=== PATIENT | female | born 1940 | race Two or more races ===

== ENCOUNTER 2016-11-25 13:12 | Inpatient (IN) | payer BC, MEDICAID ==
[~2016-11-25] VITALS: Ht 152.4 cm; Wt 59.9 kg
[~2016-11-25 13:12] MED LIST: ASPI-605 PO; AZIT250T PO; GABA-534 PO; LOSA50TA21 PO; METO-304 PO; MONT10TA22 PO; RANI150C4 PO
[2016-11-25] MEDS ORDERED: ALBUTEROL FS 2.5 MG/3 ML VIAL.NEB ONE (13:46)
[2016-11-25] MEDS ORDERED: IPRATROPIUM NEB FS 0.5 MG/2.5 ML AMPUL.NEB ONE (13:46)
[2016-11-25] MEDS ORDERED: ALBUTEROL FS 2.5 MG/3 ML VIAL.NEB NEB ONE (14:00)
[2016-11-25] MEDS ORDERED: IPRATROPIUM NEB FS 0.5 MG/2.5 ML AMPUL.NEB NEB ONE (14:00)
[2016-11-25] MEDS ORDERED: HYDR25TA4 PO (14:04)
[2016-11-25] MEDS ORDERED: ALBU8.5H2 IH (14:04)
[2016-11-25] MEDS ORDERED: AMLO5TAB2 PO (14:04)
[2016-11-25] MEDS ORDERED: CYCL5TAB PO (14:04)
[2016-11-25] MEDS ORDERED: METO25TA6 PO (14:04)
[2016-11-25 14:06] LABS: BASOPHILS % (AUTO) 0.3 % (0.0-2.0); DIFF TOTAL % 100 %; EOSINOPHILS % (AUTO) 0.2 % (0.0-6.0); HEMATOCRIT 33 % (33-45); HEMOGLOBIN 10.8 g/dL (11.5-14.8); LYMPHOCYTES # (AUTO) 1.6 /CMM (0.8-4.8); LYMPHOCYTES % (AUTO) 14.5 % (20.0-44.0); MEAN CORPUSCULAR HEMOGLOBIN 25 PG (26.0-33.0); MEAN CORPUSCULAR HGB CONC 33 g/dl (31.0-36.0); MEAN CORPUSCULAR VOLUME 75 fL (82-100); MONOCYTES % (AUTO) 9.3 % (2.0-12.0); NEUTROPHILS # (AUTO) 8.4 /CMM (1.8-8.9); NEUTROPHILS % (AUTO) 75.7 % (43.0-81.0); PLATELET COUNT (AUTO) 333 /CMM (150-450); RED BLOOD CELL COUNT(AUTO) 4.43 MIL/uL (4.0-5.2); WHITE BLOOD COUNT (AUTO) 10.9 K/uL (4.3-11.0)
[2016-11-25 14:09] LABS: CALCIUM, SERUM 9.4 mg/dL (8.5-10.1); CREATININE 0.8 mg/dL (0.6-1.3); POTASSIUM 3.3 mmol/L (3.5-5.1)
[2016-11-25 14:49] LABS: LACTIC ACID 1.1 mmol/L (0.4-2.0)
[2016-11-25] MEDS ORDERED: IV SET PRIMARY 1 EA INFUS.SET MC ONE (14:57)
[2016-11-25] MEDS ORDERED: LEVOFLOXACIN 750 MG /D5W 150ML 150 ML IV ONE ×2 (14:57→15:00)
[2016-11-25] MEDS ORDERED: IV SET PRIMARY PUMP SET 1 EA INFUS.SET MC ONE (14:57)
[2016-11-25] MEDS ORDERED: IV NS 0.9% 500 ML IV ONE (14:57)
[2016-11-25] MEDS ORDERED: predniSONE 20 MG TABLET ONE (14:57)
[2016-11-25] MEDS ORDERED: MOME13HF IH (14:59)
[2016-11-25] MEDS ORDERED: predniSONE 20 MG TABLET PO ONE (15:00)
[2016-11-25] MEDS ORDERED: IV NS 0.9% 500 ML BAG IV ONE (15:00)
[2016-11-25 16:00] VITALS: BP 138/52
[2016-11-25 16:20] VITALS: BP 138/51
[2016-11-25] MEDS ORDERED: Z GUARD REMEDY 2 OZ OINT TP PRN (16:30)
[2016-11-25] MEDS ORDERED: ACETAMINOPHEN 325 MG TABLET PO PRN (16:30)
[2016-11-25] MEDS ORDERED: BENZONATATE 100 MG CAPSULE PO PRN (16:30)
[2016-11-25] MEDS ORDERED: HYDROCODONE/APAP 5/325MG 1 EACH TABLET PO PRN (16:30)
[2016-11-25] MEDS ORDERED: MAGNESIUM HYDROXIDE 30 ML UDC PO PRN (16:30)
[2016-11-25] MEDS ORDERED: MAG HYDROX/AL HYDROX/SIMETH 30 ML UDC PO PRN (16:30)
[2016-11-25] MEDS ORDERED: ONDANSETRON HCL/PF 4 MG/2 ML VIAL IVP PRN (16:30)
[2016-11-25] MEDS ORDERED: ZOLPIDEM TARTRATE 5 MG TABLET PO PRN (16:30)
[2016-11-25] MEDS: MONTELUKAST SODIUM (10MG) 10 MG TABLET PO SCH (17:18)
[2016-11-25] MEDS: GABAPENTIN 300 MG CAPSULE PO SCH (17:18)
[2016-11-25] MEDS: METOPROLOL TARTRATE 25 MG TABLET PO SCH (17:19)
[2016-11-25] MEDS: ENOXAPARIN SODIUM 40 MG/0.4 ML DISP.SYRIN SQ SCH (17:21)
[2016-11-25 20:00] VITALS: BP 111/61
[2016-11-25] MEDS: FLUTICASONE/SALMETEROL DISKUS IH SCH (21:00)
[2016-11-25 21:24] VITALS: BP 111/61
[2016-11-25] MEDS ORDERED: FLUTICASONE/SALMETEROL 1 DISK IH ONE (21:49)
[2016-11-25] MEDS ORDERED: POTASSIUM CHLORIDE 20 MEQ TAB.PRT.SR PO ONE ×2 (22:29→22:30)
[2016-11-25 23:58] VITALS: BP 119/64
[2016-11-26] VITALS (8 sets, daily range): BP systolic 113–137; BP diastolic 53–71
[2016-11-26] MEDS: PANTOPRAZOLE 40 MG TABLET.DR PO SCH (06:26)
[2016-11-26 06:50] LABS: BASOPHILS % (AUTO) 0.3 % (0.0-2.0); DIFF TOTAL % 100 %; HEMATOCRIT 32 % (33-45); HEMOGLOBIN 10.3 g/dL (11.5-14.8); LYMPHOCYTES # (AUTO) 1.2 /CMM (0.8-4.8); LYMPHOCYTES % (AUTO) 16.4 % (20.0-44.0); MEAN CORPUSCULAR HEMOGLOBIN 25 PG (26.0-33.0); MEAN CORPUSCULAR HGB CONC 32 g/dl (31.0-36.0); MEAN CORPUSCULAR VOLUME 76 fL (82-100); MONOCYTES # (AUTO) 0.6 /CMM (0.1-1.30); NEUTROPHILS # (AUTO) 5.6 /CMM (1.8-8.9); NEUTROPHILS % (AUTO) 75.3 % (43.0-81.0); PLATELET COUNT (AUTO) 322 /CMM (150-450); WHITE BLOOD COUNT (AUTO) 7.4 K/uL (4.3-11.0)
[2016-11-26 07:13] LABS: CALCIUM, SERUM 8.9 mg/dL (8.5-10.1); CREATININE 0.6 mg/dL (0.6-1.3); PHOSPHORUS 3.2 mg/dL (2.5-4.9); POTASSIUM 3.9 mmol/L (3.5-5.1)
[2016-11-26] MEDS ORDERED: LEVOFLOXACIN (500MG) 500 MG TABLET PO SCH (07:30)
[2016-11-26] MEDS: FLUTICASONE/SALMETEROL DISKUS IH SCH ×2 (08:45→21:29)
[2016-11-26] MEDS: predniSONE 20 MG TABLET PO SCH (08:46)
[2016-11-26] MEDS: CYCLOBENZAPRINE 10 MG TABLET PO SCH (08:46)
[2016-11-26] MEDS: GABAPENTIN 300 MG CAPSULE PO SCH ×2 (08:46→16:34)
[2016-11-26] MEDS: AMLODIPINE BESYLATE 5 MG TABLET PO SCH (09:00)
[2016-11-26] MEDS: METOPROLOL TARTRATE 25 MG TABLET PO SCH ×2 (09:00→16:36)
[2016-11-26] MEDS: LOSARTAN POTASSIUM 50 MG TABLET PO SCH (09:00)
[2016-11-26] MEDS: HYDROCHLOROTHIAZIDE 25 MG TABLET PO SCH (09:00)
[2016-11-26] MEDS: GUAIFENESIN/D-METHORPHAN HB 5 ML UDC PO PRN ×2 (11:51→16:38)
[2016-11-26] MEDS ORDERED: LEVOFLOXACIN (250MG) 250 MG TABLET PO SCH (15:00)
[2016-11-26] MEDS: MONTELUKAST SODIUM (10MG) 10 MG TABLET PO SCH (16:35)
[2016-11-26] MEDS: ENOXAPARIN SODIUM 40 MG/0.4 ML DISP.SYRIN SQ SCH (21:31)
[2016-11-27 07:11] LABS: BASOPHILS % (AUTO) 0.1 % (0.0-2.0); DIFF TOTAL % 100 %; HEMATOCRIT 32 % (33-45); HEMOGLOBIN 10.4 g/dL (11.5-14.8); LYMPHOCYTES # (AUTO) 1.7 /CMM (0.8-4.8); LYMPHOCYTES % (AUTO) 18.2 % (20.0-44.0); MEAN CORPUSCULAR HEMOGLOBIN 25 PG (26.0-33.0); MEAN CORPUSCULAR HGB CONC 33 g/dl (31.0-36.0); MEAN CORPUSCULAR VOLUME 76 fL (82-100); MONOCYTES # (AUTO) 0.9 /CMM (0.1-1.30); MONOCYTES % (AUTO) 9.6 % (2.0-12.0); NEUTROPHILS # (AUTO) 6.6 /CMM (1.8-8.9); NEUTROPHILS % (AUTO) 72.1 % (43.0-81.0); PLATELET COUNT (AUTO) 330 /CMM (150-450); RED BLOOD CELL COUNT(AUTO) 4.22 MIL/uL (4.0-5.2); WHITE BLOOD COUNT (AUTO) 9.1 K/uL (4.3-11.0)
[2016-11-27 07:19] LABS: CALCIUM, SERUM 9.2 mg/dL (8.5-10.1); CREATININE 0.7 mg/dL (0.6-1.3); PHOSPHORUS 3.3 mg/dL (2.5-4.9); POTASSIUM 3.9 mmol/L (3.5-5.1)
[2016-11-27 08:00] VITALS: BP 127/66
[2016-11-27] MEDS: FLUTICASONE/SALMETEROL DISKUS IH SCH (08:49)
[2016-11-27] MEDS: GABAPENTIN 300 MG CAPSULE PO SCH (08:50)
[2016-11-27] MEDS: HYDROCHLOROTHIAZIDE 25 MG TABLET PO SCH (08:50)
[2016-11-27] MEDS: AMLODIPINE BESYLATE 5 MG TABLET PO SCH (08:50)
[2016-11-27] MEDS: LOSARTAN POTASSIUM 50 MG TABLET PO SCH (08:50)
[2016-11-27] MEDS: PANTOPRAZOLE 40 MG TABLET.DR PO SCH (08:50)
[2016-11-27 08:51] VITALS: BP 127/66
[2016-11-27] MEDS: METOPROLOL TARTRATE 25 MG TABLET PO SCH (08:51)
[2016-11-27] MEDS: CYCLOBENZAPRINE 10 MG TABLET PO SCH (08:51)
[2016-11-27] MEDS: predniSONE 20 MG TABLET PO SCH (08:52)
[2016-11-27] MEDS ORDERED: LEVO250T11 PO (09:38)
== END 2016-11-27 13:00 | disposition home or self-care (01) | DRG 139 ==
LOC: ER 13:14 → TELE 16:08 → MED 11-26 11:52
PROVIDERS: ADMIT Internal Medicine; ATTEND Internal Medicine
DX: J15.9 Unspecified bacterial pneumonia (principal); J96.01 Acute respiratory failure with hypoxia; I25.10 Atherosclerotic heart disease of native coronary artery without angina pectoris; Z98.61 Coronary angioplasty status; J40 Bronchitis, not specified as acute or chronic; J45.20 Mild intermittent asthma, uncomplicated; K21.9 Gastro-esophageal reflux disease without esophagitis; I10 Essential (primary) hypertension; E78.5 Hyperlipidemia, unspecified; E87.6 Hypokalemia; I70.0 Atherosclerosis of aorta; J84.112 Idiopathic pulmonary fibrosis
CPT/HCPCS: 36415; 71010-TC; 72170-TC; 80048-TC; 83605-TC; 83735-TC; 84100-TC; 85025-TC; 87040-TC; 87081-TC; 97001-TC; 97116-TC; 97530-TC; A4606; J1650; J1956; J7040; Z7610

== ENCOUNTER 2017-04-08 23:26 | Emergency (ER) | payer MEDICAID ==
[~2017-04-08] VITALS: Ht 162.6 cm; Wt 59.0 kg
[~2017-04-08 23:26] MED LIST changes: +AMLO5TAB2 PO; -ASPI-605 PO; -AZIT250T PO; +CYCL5TAB PO; +HYDR25TA4 PO; +LEVO250T2 PO; -METO-304 PO; +METO25TA6 PO; +MOME13HF IH; -RANI150C4 PO
--- NOTE | 2017-04-08 23:45 | NUR ---
PT PRESENTED TO THE ER WITH A C/O ABD PAIN THAT RADIATES TO THE BACK. PT HAS RHONCHI NOTED BILATERALLY AND IS ALSO C/O A COUGH X 3 DAYS. PT IS NEW ZEALANDER SPEAKING ONLY. FAMILY IS AT THE BEDSIDE AND TRASLATING FOR THE PT.
[2017-04-09] MEDS ORDERED: ALBUTEROL FS 2.5 MG/3 ML VIAL.NEB ONE (00:08)
--- NOTE | 2017-04-09 00:23 | NUR ---
PT AMBULATED TO THE BATHROOM WITH A STEADY GAIT. URINE SAMPLE OBTAINED AND SENT TO LAB.
[2017-04-09] MEDS ORDERED: MORPHINE SULFATE INJ 4 MG/ML DISP.SYRIN ONE (00:24)
[2017-04-09] MEDS ORDERED: ONDANSETRON HCL/PF 4 MG/2 ML VIAL ONE (00:24)
[2017-04-09] MEDS ORDERED: MORPHINE SULFATE INJ 2 MG/ML DISP.SYRIN ONE (00:24)
[2017-04-09 00:29] LABS: BASOPHILS % (AUTO) 0.3 % (0.0-2.0); EOSINOPHILS % (AUTO) 0.2 % (0.0-6.0); HEMATOCRIT 34 % (33-45); LYMPHOCYTES # (AUTO) 1.4 /CMM (0.8-4.8); LYMPHOCYTES % (AUTO) 12.3 % (20.0-44.0); MEAN CORPUSCULAR HEMOGLOBIN 25 PG (26.0-33.0); MEAN CORPUSCULAR HGB CONC 33 g/dl (31.0-36.0); MEAN CORPUSCULAR VOLUME 77 fL (82-100); MONOCYTES # (AUTO) 0.9 /CMM (0.1-1.30); MONOCYTES % (AUTO) 8.1 % (2.0-12.0); NEUTROPHILS # (AUTO) 8.9 /CMM (1.8-8.9); NEUTROPHILS % (AUTO) 79.1 % (43.0-81.0); PLATELET COUNT (AUTO) 384 /CMM (150-450); RDW COEFFICIENT OF VARIATION 16.6 (11.5-15.0); RED BLOOD CELL COUNT(AUTO) 4.37 MIL/uL (4.0-5.2); WHITE BLOOD COUNT (AUTO) 11.2 K/uL (4.3-11.0)
[2017-04-09] MEDS ORDERED: ALBUTEROL FS 2.5 MG/3 ML VIAL.NEB NEB ONE (00:30)
[2017-04-09] MEDS ORDERED: ONDANSETRON HCL/PF 4 MG/2 ML VIAL IVP ONE (00:30)
[2017-04-09] MEDS ORDERED: MORPHINE SULFATE INJ 2 MG/ML DISP.SYRIN IV ONE (00:30)
[2017-04-09 00:34] LABS: APPEARANCE,URINE CLEAR (CLEAR); BILIRUBIN,URINE NEGATIVE (NEGATIVE); BLOOD, URINE 1+ Ery/uL (NEGATIVE); COLOR,URINE YELLOW (YELLOW); KETONES,URINE NEGATIVE (NEGATIVE); LEUKOCYTE ESTERASE ,URINE TRACE (NEGATIVE); NITRITE, URINE NEGATIVE (NEGATIVE); PH,URINE 6.5 (5.0-8.0); PROTEIN,URINE NEGATIVE (NEGATIVE); UGLUCOSE NEGATIVE (NEGATIVE); UROBILINOGEN,URINE 0.2 EU/dL (0.2)
[2017-04-09 00:41] LABS: CALCIUM, SERUM 9.1 mg/dL (8.5-10.1); CREATININE 0.8 mg/dL (0.6-1.3); POTASSIUM 3.5 mmol/L (3.5-5.1)
[2017-04-09 00:44] LABS: ADD URINE CULTURE NO; BACTERIA,URINE Rare /HPF (None Seen); SQUAMOUS EPITHELIAL CELL,UR Few /HPF (None Seen); WBC,URINE 0-2 /HPF (0-3)
[2017-04-09 00:49] LABS: INR 0.96 (0.87-1.13); PROTHROMBIN TIME 10.2 SECS (9.5-12.7)
[2017-04-09 00:54] LABS: ALBUMIN 3.3 g/dL (3.4-5.0); BILIRUBIN,DIRECT 0.1 mg/dL (0.0-0.2); BILIRUBIN,TOTAL 0.2 mg/dL (0.2-1.0); TOTAL PROTEIN, SERUM 8.5 g/dL (6.4-8.2)
--- NOTE | 2017-04-09 01:15 | NUR ---
PT APPEARS TO BE RESTING COMFORTABLY WITH NO S/S OF PAIN OR DISTRESS.
--- NOTE | 2017-04-09 02:35 | NUR ---
PO CHALLENGE DONE. PT TOLERATED PO WELL.
[2017-04-09 02:51] VITALS: BP 134/82
--- NOTE | 2017-04-09 02:53 | NUR ---
IV removed. Catheter intact and site benign. Pressure and 4x4 applied to site. No bleeding noted.
== END 2017-04-09 03:03 | disposition home or self-care (01) ==
LOC: ER 23:32
DX: N83.201 Unspecified ovarian cyst, right side (principal); J84.9 Interstitial pulmonary disease, unspecified; I10 Essential (primary) hypertension; J45.909 Unspecified asthma, uncomplicated
CPT/HCPCS: 36415; 71010; 74176; 80048; 80076; 81001; 83690; 83880; 85025; 85730; 94640; 96374; 96375; 99285; A4606; J2270 ×2; J2405; Z7610; 81000-TC

== ENCOUNTER 2017-05-30 22:57 | Inpatient (IN) | payer MEDICAID ==
[~2017-05-30] VITALS: Ht 144.8 cm; Wt 62.8 kg
[2017-05-30] MEDS ORDERED: ONDANSETRON HCL/PF 4 MG/2 ML VIAL ONE (23:09)
[2017-05-30] MEDS ORDERED: IV SET PRIMARY 1 EA INFUS.SET MC ONE (23:09)
[2017-05-30] MEDS ORDERED: IV NS 0.9% 1,000 ML ONE (23:09)
--- NOTE | 2017-05-30 23:10 | NUR ---
77 YO FEMALE BB FAMILY. PT IS ALERT X 3, C/O OF FEELING WEAK AND DIZZY. PT AMBULATED TO ER BED, SKIN WARM AND DRY, RR EVEN AND UNLABORED. PT GOWNED, PLACED ON HAND TRIMMER. AWAITING ORDERS FROM PROVIDER, WILL CONTINUE TO LAKHWINDER
--- NOTE | 2017-05-30 23:22 | NUR ---
18G RIGHT AC IV STARTED, BLOOD SAMPLE OBTAINED AND SENT TO LAB
--- NOTE | 2017-05-30 23:26 | NUR ---
PT TRANSPORTED TO CT VIA GURNEY BY RADIOLOGY TEAM
[2017-05-30 23:28] LABS: BASOPHILS % (AUTO) 0.5 % (0.0-2.0); EOSINOPHILS # (AUTO) 0.3 /CMM (0.0-0.7); EOSINOPHILS % (AUTO) 4.2 % (0.0-6.0); HEMATOCRIT 34 % (33-45); LYMPHOCYTES # (AUTO) 2.3 /CMM (0.8-4.8); LYMPHOCYTES % (AUTO) 28.6 % (20.0-44.0); MEAN CORPUSCULAR HEMOGLOBIN 25 PG (26.0-33.0); MEAN CORPUSCULAR HGB CONC 32 g/dl (31.0-36.0); MEAN CORPUSCULAR VOLUME 79 fL (82-100); MONOCYTES # (AUTO) 0.8 /CMM (0.1-1.30); MONOCYTES % (AUTO) 9.7 % (2.0-12.0); NEUTROPHILS # (AUTO) 4.6 /CMM (1.8-8.9); PLATELET COUNT (AUTO) 305 /CMM (150-450); RDW COEFFICIENT OF VARIATION 18.1 (11.5-15.0); RED BLOOD CELL COUNT(AUTO) 4.38 MIL/uL (4.0-5.2); WHITE BLOOD COUNT (AUTO) 8.1 K/uL (4.3-11.0)
[2017-05-30] MEDS ORDERED: ONDANSETRON HCL/PF 4 MG/2 ML VIAL IVP ONE (23:30)
[2017-05-30] MEDS ORDERED: IV NS 0.9% 1,000 ML BAG IV ONE (23:30)
[2017-05-30 23:39] LABS: CALCIUM, SERUM 9.3 mg/dL (8.5-10.1); CARBON DIOXIDE 35 mmol/L (21-32); CHLORIDE 100 mmol/L (98-107); CREATININE 0.7 mg/dL (0.6-1.3); GLUCOSE 112 mg/dL (74-106); POTASSIUM 4.5 mmol/L (3.5-5.1); SODIUM SERUM 139 mmol/L (136-145); UREA NITROGEN, BLOOD 11 mg/dL (7-18)
[2017-05-30 23:42] LABS: INR 0.92 (0.87-1.13); PROTHROMBIN TIME 9.8 SECS (9.5-12.7)
[2017-05-30 23:45] LABS: ALANINE AMINOTRANSFERASE 19 U/L (12-78); ALBUMIN 3.3 g/dL (3.4-5.0); ALKALINE PHOSPHATASE 95 U/L (46-116); ASPARTATE AMINOTRANSFERASE 15 U/L (15-37); BILIRUBIN,TOTAL 0.2 mg/dL (0.2-1.0); TOTAL PROTEIN, SERUM 7.7 g/dL (6.4-8.2)
[2017-05-30 23:46] LABS: TROPONIN I < 0.017 ng/mL (0.00-0.056)
--- NOTE | 2017-05-31 00:53 | NUR ---
report given to rn for hussein
--- NOTE | 2017-05-31 01:10 | NUR ---
TELE/RN NOTES RECEIVED PT. FROM ER [facility]IA [facility]. PT. IS AWAKE, ALERT AND ORIENTED X3. BREATHING EVEN AND UNLABORED ON ROOM AIR. NO SOB, RESPIRATORY DISTRESS OR COMPLAINTS OF PAIN NOTED AT THIS TIME. PT. DENIES ANY NUMBNESS OR HEADACHE. ORIENTED PT. TO ROOM. NEURO CHECK PERFORMED NO ABNORMALITIES NOTED. PLACED EXTERNAL INVESTIGATION DIVISION LIEUTENANT ON PT. CURRENT RHYTHM = SINUS RHYTHM HR 83. PT. WITH RIGHT AC 18 GAUGE PERIPHERAL IV PRESENT, PATENT AND INTACT ADMINISTERING TO PT. NS FROM ER. PT. FAMILY AT BEDSIDE. BED IN LOWEST POSITION, CALL LIGHT WITHIN REACH, SIDE RAILS UP X2, BED ALARM ON. EDUCATED PT. ON CALLING FOR ASSISTANCE BEFORE AMBULATING. PT. VERBALIZED UNDERSTANDING. WILL CONTINUE TO MONITOR.
[2017-05-31 01:14] LABS: APPEARANCE,URINE SL CLOUDY (CLEAR); BILIRUBIN,URINE NEGATIVE (NEGATIVE); BLOOD, URINE TRACE-INTA Ery/uL (NEGATIVE); KETONES,URINE NEGATIVE (NEGATIVE); LEUKOCYTE ESTERASE ,URINE 1+ (NEGATIVE); NITRITE, URINE NEGATIVE (NEGATIVE); PH,URINE 6.5 (5.0-8.0); PROTEIN,URINE NEGATIVE (NEGATIVE); UGLUCOSE NEGATIVE (NEGATIVE); UROBILINOGEN,URINE 0.2 EU/dL (0.2)
[2017-05-31 01:16] LABS: COLOR,URINE Light yellow (YELLOW)
[2017-05-31 01:19] LABS: BACTERIA,URINE None seen /HPF (None Seen); RBC,URINE 0-2 /HPF (0-2); SQUAMOUS EPITHELIAL CELL,UR Rare /HPF (None Seen)
[2017-05-31 01:34] LABS: THYROID STIMULATING HORMONE 5.327 uIU/mL (0.358-3.74)
[2017-05-31] MEDS ORDERED: GABA-534 PO (01:38)
[2017-05-31] MEDS ORDERED: RANI150T8 PO (01:38)
[2017-05-31] MEDS ORDERED: ENOXAPARIN SODIUM 30 MG/0.3 ML DISP.SYRIN ONE (02:01)
[2017-05-31] MEDS: ENOXAPARIN SODIUM 30 MG/0.3 ML DISP.SYRIN SQ SCH (02:58)
[2017-05-31 04:00] VITALS: BP_SYST 119; BP_SYST 136; BP_DIAS 61; BP_DIAS 79
--- NOTE | 2017-05-31 05:05 | NUR ---
TELE/RN NOTES CLARIFIED WITH JENNIFER HURTADO PT. HAS ACCUCHECKS ORDERED Q6H AND ACCUCHECKS ACHS. PER JENNIFER HURTADO D/C Q6HR ACCUCHECKS BECAUSE PT. IS EATING. WILL CARRY OUT ORDER. WILL CONTINUE TO MONITOR.
[2017-05-31] MEDS ORDERED: BLOOD SUGAR DIAGNOSTIC 1 EACH STRIP IN SCH (06:00)
[2017-05-31] MEDS: BLOOD SUGAR DIAGNOSTIC 1 EACH STRIP IN SCH ×4 (06:33→21:12)
--- NOTE | 2017-05-31 06:45 | NUR ---
TELE/RN NOTES PT. LYING IN BED RESTING. PT. IS EASILY AROUSABLE TO NAME. BREATHING EVEN AND UNLABORED ON ROOM AIR. NO SOB, RESPIRATORY DISTRESS OR COMPLAINTS OF PAIN NOTED AT THIS TIME. PT. DENIES ANY NUMBNESS OR HEADACHE. ORIENTED PT. TO ROOM. FREQUENT NEURO CHECKS PERFORMED WITH NO ABNORMALITIES NOTED. EXTERNAL ENVELOPE FOLDING MACHINE OPERATOR PRESENT AND INTACT CURRENT RHYTHM = SINUS RHYTHM HR 78. PT. WITH RIGHT AC 18 GAUGE IV SALINE LOCK, PRESENT, PATENT AND INTACT. ALL PT. NEEDS MET. BED IN LOWEST POSITION, CALL LIGHT WITHIN REACH, SIDE RAILS UP X2, BED ALARM ON. WILL ENDORSE TO DAYSHIFT NURSE FOR CONTINUITY OF CARE.
[2017-05-31 06:48] VITALS: BP 114/60
--- NOTE | 2017-05-31 07:45 | NUR ---
FRUIT DRYER OPENING NOTE PATIENT IS ALERT AND ORIENTED x4. NO PAIN AT THIS TIME. NO SOB OR DISTRESS NOTED. CALL LIGHT WITHIN REACH. SAFETY MEASURES IMPLEMENTED. ABLE TO COMMUNICATE NEEDS. IV INTACT AND PATENT NO REDNESS OR SWELLING NOTED. GERMAN SPEAKING, HARD OF HEARING ON RIGHT EAR. AWAITING CONSULTS THIS MORNING. WILL CONTINUE TO MONITOR
[2017-05-31 08:00] VITALS: BP 114/60
[2017-05-31] MEDS ORDERED: PANTOPRAZOLE 40 MG VIAL IV SCH (09:00)
[2017-05-31] MEDS: ASPIRIN 325 MG TABLET PO SCH (09:11)
[2017-05-31] MEDS: PANTOPRAZOLE 40 MG TABLET.DR PO SCH (09:21)
[2017-05-31 12:00] VITALS: BP 129/48
[2017-05-31 16:00] VITALS: BP 148/62
[2017-05-31] MEDS: GABAPENTIN 300 MG CAPSULE PO SCH (16:52)
[2017-05-31] MEDS: METOPROLOL TARTRATE 25 MG TABLET PO SCH (16:53)
[2017-05-31] MEDS ORDERED: FLUTICASONE/SALMETEROL DISKUS IH SCH (17:00)
[2017-05-31] MEDS: MONTELUKAST SODIUM (10MG) 10 MG TABLET PO SCH (17:01)
--- NOTE | 2017-05-31 18:13 | NUR ---
LIVESTOCK NUTRITIONIST CLOSING NOTE PATIENT IS ALERT AND ORIENTED x4. NO PAIN AT THIS TIME. NO SOB OR DISTRESS NOTED. CALL LIGHT WITHIN REACH AT ALL TIMES. SAFETY MEASURES IMPLEMENTED. ABLE TO COMMUNICATE NEEDS. IV INTACT AND PATENT NO REDNESS OR SWELLING NOTED. ALL DUE MEDICATIONS GIVEN ORDERED. MED RECON DONE. MRI BRAIN WITHOUT CONTRAST DONE. WILL ENDORSE TO DATA PROCESSING CONSULTANT NURSE.
[2017-05-31] MEDS ORDERED: ALBUTEROL FS 2.5 MG/3 ML VIAL.NEB NEB PRN (19:30)
--- NOTE | 2017-05-31 19:45 | NUR ---
BOLT LABELER OPENING NOTES PT IS IN BED SLEEPING, EASILY AROUSED. NO SIGNS OF SOB OR DISTRESS. SR 69 ON TELE MONITOR. IV IS PATENT AND INTACT. PT IS ABLE TO COMMUNICATE NEEDS, GEORGIAN SPEAKING. DENIES PAIN. BED IS IN LOW AND LOCKED POSITION, CALL LIGHT IS WITHIN REACH. WILL CONTINUE TO MONITOR PT
[2017-05-31 20:00] VITALS: BP 143/56
[2017-05-31] MEDS ORDERED: ATORVASTATIN 10 MG TABLET PO SCH (22:00)
[2017-06-01] VITALS: BP 140/64
[2017-06-01] MEDS: ENOXAPARIN SODIUM 30 MG/0.3 ML DISP.SYRIN SQ SCH (00:30)
[2017-06-01] MEDS: BLOOD SUGAR DIAGNOSTIC 1 EACH STRIP IN SCH (06:30)
--- NOTE | 2017-06-01 06:50 | NUR ---
COMBINING MACHINE OPERATOR CLOSING NOTES PT IS IN BED SLEEPING, BREATHING IS EVEN AND UNLABORED. NO SIGNS OF DISTRESS OR SOB. ALL DUE MEDS WERE GIVEN ORDERED. IV ACCESS IS PATENT AND INTACT. AWAITING CONSULTS. WILL ENDORSE TO DAY SHIFT
[2017-06-01 07:02] LABS: BASOPHILS % (AUTO) 0.4 % (0.0-2.0); EOSINOPHILS # (AUTO) 0.2 /CMM (0.0-0.7); HEMATOCRIT 34 % (33-45); LYMPHOCYTES # (AUTO) 1.7 /CMM (0.8-4.8); MEAN CORPUSCULAR HEMOGLOBIN 26 PG (26.0-33.0); MEAN CORPUSCULAR HGB CONC 33 g/dl (31.0-36.0); MEAN CORPUSCULAR VOLUME 79 fL (82-100); MONOCYTES # (AUTO) 0.7 /CMM (0.1-1.30); MONOCYTES % (AUTO) 8.6 % (2.0-12.0); NEUTROPHILS # (AUTO) 5.2 /CMM (1.8-8.9); PLATELET COUNT (AUTO) 237 /CMM (150-450); RDW COEFFICIENT OF VARIATION 17.8 (11.5-15.0); RED BLOOD CELL COUNT(AUTO) 4.29 MIL/uL (4.0-5.2); WHITE BLOOD COUNT (AUTO) 7.9 K/uL (4.3-11.0)
[2017-06-01 07:23] VITALS: BP 127/63
[2017-06-01 07:34] LABS: CALCIUM, SERUM 8.7 mg/dL (8.5-10.1); CARBON DIOXIDE 30 mmol/L (21-32); CHLORIDE 102 mmol/L (98-107); CREATININE 0.7 mg/dL (0.6-1.3); GLUCOSE 93 mg/dL (74-106); POTASSIUM 3.7 mmol/L (3.5-5.1); SODIUM SERUM 139 mmol/L (136-145); UREA NITROGEN, BLOOD 13 mg/dL (7-18)
[2017-06-01 08:00] VITALS: BP 137/61
--- NOTE | 2017-06-01 08:00 | NUR ---
TELE/RN AM SHIFT INITIAL NOTES RECEIVED PT AWAKE SITTING IN BED, NO ACUTE CHANGE OF CONDITION NOTED. NO DEFICITS OR S/S OF STROKE NOTED. PT A/O X 4, FRENCH SPEAKING, DENIES ANY SYMPTOMS. ON ROOM AIR SATURATING @ 96%, LUNG SOUNDS CLEAR. ON TELE WITH SINUS RHYTHM, HR 88. IV SITE FLUSHED, PATENT WITH NO S/S OF INFECTION, SL. PT IS COMFORTABLE, SCHEDULED AM MEDS TO BE GIVEN. CL WITHIN REACHED AND SAFETY MAINTAINED. ON GOING MONITORING.
[2017-06-01] MEDS: GABAPENTIN 300 MG CAPSULE PO SCH ×2 (08:50→17:05)
[2017-06-01] MEDS: PANTOPRAZOLE 40 MG TABLET.DR PO SCH (08:50)
[2017-06-01] MEDS: METOPROLOL TARTRATE 25 MG TABLET PO SCH ×2 (08:51→17:06)
[2017-06-01] MEDS: ASPIRIN 325 MG TABLET PO SCH (08:51)
[2017-06-01] MEDS ORDERED: AMLODIPINE BESYLATE 5 MG TABLET PO SCH (09:00)
[2017-06-01] MEDS ORDERED: LOSARTAN POTASSIUM 50 MG TABLET PO SCH (09:00)
[2017-06-01] MEDS ORDERED: FLUTICASONE/VILANTEROL 1 EACH BLST.W.DEV IH SCH (09:00)
--- NOTE | 2017-06-01 09:00 | NUR ---
TELE/RN ROUNDS - DR. GRIGGS PT SEEN & EXAMINED BY DR. GRIGGS. NO NEW ORDERS RECEIVED AT THIS TIME. INFORMED ME THAT PT WILL HAVE A EEG PROCEDURE AND WILL BE SEEN BY DR. ORTIZ TODAY, NOTED. MONITORING CONTINUED.
--- NOTE | 2017-06-01 10:49 | NUR ---
TELE/RN ROUNDS - DR. ORTIZ UPDATED PT'S CONDITION. PT SEEN & EXAMINED BY DR. ORTIZ. NO NEW ORDERS RECEIVED AT THIS TIME. AWAITING FOR EEG PROCEDURE. MONITORING CONTINUED.
[2017-06-01 16:00] VITALS: BP 145/66
--- NOTE | 2017-06-01 17:00 | NUR ---
MS/RN AFTERNOON ROUNDS NO CHANGE OF CONDITION. PT WITH ON GOING EEG PROCEDURE. MONITORING.
[2017-06-01 17:06] VITALS: BP 145/66
[2017-06-01] MEDS: MONTELUKAST SODIUM (10MG) 10 MG TABLET PO SCH (17:06)
--- NOTE | 2017-06-01 18:00 | NUR ---
MS/DENTAL CERAMIST HELPER - HOME EEG TEST RESULT NORMAL. DRs. GRIGGS AND ANGEL AWARE. DISCHARGE INSTRUCTIONS GIVEN TO PT AND PT'S DAUGHTER, VERBALIZED UNDERSTANDING. DISCHARGE DOCUMENTS GIVEN. PERSONAL BELONGINGS RETURNED TO PT, INVENTORY LOG SIGNED OFF. IV SITE REMOVED, PRESSURE DRESSING APPLIED, NO S/S OF INFECTION. ID BAND REMOVED. PT LEFT MS UNIT IN STABLE CONDITION VIA WHEELCHAIR ACCOMPANIED BY KAITLYN HEWITT AND PT'S DAUGHTER TO AN AWAITING PRIVATE CAR.
[2017-06-01] MEDS ORDERED: ENOXAPARIN SODIUM 30 MG/0.3 ML DISP.SYRIN SQ SCH (21:00)
== END 2017-06-01 18:00 | disposition home or self-care (01) | DRG 48 ==
LOC: ER 22:58 → TELE 05-31 00:41 → MED 05-31 09:49 → TELE 05-31 09:49 → MED 06-01 11:00
PROVIDERS: ADMIT Nurse Practitioner Acute Care
DX: G90.8 Other disorders of autonomic nervous system (principal); E53.8 Deficiency of other specified B group vitamins; I10 Essential (primary) hypertension; E78.5 Hyperlipidemia, unspecified; I25.10 Atherosclerotic heart disease of native coronary artery without angina pectoris; K21.9 Gastro-esophageal reflux disease without esophagitis; J45.909 Unspecified asthma, uncomplicated; E78.00 Pure hypercholesterolemia, unspecified; Z87.01 Personal history of pneumonia (recurrent); Z79.899 Other long term (current) drug therapy; Z98.890 Other specified postprocedural states
CPT/HCPCS: 36415; 70450-TC; 70553-TC; 71010-TC; 80048-TC; 80061-TC; 80076-TC; 80305; 81000-TC; 82962-TC; 83880; 84443-TC; 84484-TC; 85025-TC; 85652-TC; 85730-TC; 87081-TC; 87086-TC; 92521; 93307-TC; 93880-TC; 95819-TC; 97001-TC; A4606; J1650; J2405; J7030; Z7610

== ENCOUNTER 2017-10-29 16:53 | Emergency (ER) | payer MEDICAID ==
[~2017-10-29] VITALS: Ht 162.6 cm; Wt 64.9 kg
[~2017-10-29 16:53] MED LIST changes: -LEVO250T2 PO; +RANI150T8 PO
[2017-10-29 17:05] VITALS: BP 140/79
== END 2017-10-29 18:40 | disposition home or self-care (01) ==
LOC: ER 16:59
DX: S61.212A Laceration without foreign body of right middle finger without damage to nail, initial encounter (principal); S61.214A Laceration without foreign body of right ring finger without damage to nail, initial encounter; I10 Essential (primary) hypertension; J45.909 Unspecified asthma, uncomplicated; E78.00 Pure hypercholesterolemia, unspecified; W31.89XA Contact with other specified machinery, initial encounter; Y93.89 Activity, other specified; Y92.89 Other specified places as the place of occurrence of the external cause; Y99.8 Other external cause status
CPT/HCPCS: 73130; 99284; A4606; Z7610

== ENCOUNTER 2019-11-30 19:12 | Emergency (ER) | payer MEDICAID ==
[~2019-11-30] VITALS: Ht 152.4 cm; Wt 68.0 kg
[~2019-11-30 19:12] MED LIST changes: -AMLO5TAB2 PO; +AMLO5TAB9 PO; -LOSA50TA21 PO; +LOSA50TA39 PO
--- NOTE | 2019-11-30 19:40 | NUR ---
BIBFAMILY FROM HOME TO ER BED 1. AAOX4. BREATHING EVEN AND UNLABORED. AMBULATORY CAME IN FOR FLU LIKE SYMPTOM X 2 DAYS. PRODUCTIVE COUGH, FEVER, H/A, BODY ACHE. PT REPORT CHEST AND ABD PAIN WHEN HE IS COUGHING. MD AT BEDSIDE FOR EVAL.
[2019-11-30] MEDS ORDERED: ALBUTEROL FS 2.5 MG/3 ML VIAL.NEB ONE (20:58)
[2019-11-30] MEDS ORDERED: ALBUTEROL FS 2.5 MG/3 ML VIAL.NEB NEB ONE (21:00)
[2019-11-30] MEDS ORDERED: IPRATROPIUM NEB FS 0.5 MG/2.5 ML AMPUL.NEB NEB ONE (21:00)
[2019-11-30 21:05] LABS: BASOPHILS # (AUTO) 0.1 /CMM (0.0-0.2); BASOPHILS % (AUTO) 0.5 % (0.0-2.0); EOSINOPHILS % (AUTO) 0.2 % (0.0-6.0); HEMATOCRIT 34 % (33-45); HEMOGLOBIN 11.1 g/dL (11.5-14.8); LYMPHOCYTES # (AUTO) 0.7 /CMM (0.8-4.8); LYMPHOCYTES % (AUTO) 6.2 % (20.0-44.0); MEAN CORPUSCULAR HGB CONC 33 g/dl (31.0-36.0); MEAN CORPUSCULAR VOLUME 82 fL (82-100); MONOCYTES # (AUTO) 0.8 /CMM (0.1-1.30); MONOCYTES % (AUTO) 7.2 % (2.0-12.0); NEUTROPHILS # (AUTO) 9.1 /CMM (1.8-8.9); NEUTROPHILS % (AUTO) 85.9 % (43.0-81.0); PLATELET COUNT (AUTO) 200 /CMM (150-450); RED BLOOD CELL COUNT(AUTO) 4.14 MIL/uL (4.0-5.2); WHITE BLOOD COUNT (AUTO) 10.6 K/uL (4.3-11.0)
[2019-11-30 21:10] LABS: CALCIUM, SERUM 8.8 mg/dL (8.5-10.1); CREATININE 1.3 mg/dL (0.6-1.3); POTASSIUM 3.4 mmol/L (3.5-5.1)
[2019-11-30] MEDS ORDERED: POTASSIUM CHLORIDE 20 MEQ TAB.PRT.SR PO ONE ×2 (22:00→22:24)
[2019-11-30 22:23] LABS: APPEARANCE,URINE Clear (CLEAR); BILIRUBIN,URINE Negative (NEGATIVE); BLOOD, URINE Large Ery/uL (NEGATIVE); COLOR,URINE Orange (YELLOW); KETONES,URINE Trace (NEGATIVE); LEUKOCYTE ESTERASE ,URINE Small (NEGATIVE); NITRITE, URINE Negative (NEGATIVE); PROTEIN,URINE 100 mg/dl (NEGATIVE); UGLUCOSE Negative (NEGATIVE); UROBILINOGEN,URINE 0.2 EU/dL (0.2)
[2019-11-30] MEDS ORDERED: ACETAMINOPHEN 325 MG TABLET ONE (22:23)
[2019-11-30] MEDS ORDERED: ACETAMINOPHEN 325 MG TABLET PO ONE (22:30)
[2019-11-30 22:45] LABS: BACTERIA,URINE Many /HPF (None Seen); SQUAMOUS EPITHELIAL CELL,UR Few /HPF (None Seen); WBC,URINE 21-50 /HPF (0-3)
[2019-11-30] MEDS ORDERED: AMOX/CLAVULANATE 875 MG TABLET ONE (23:26)
[2019-11-30] MEDS ORDERED: AZITHROMYCIN 250 MG TABLET ONE (23:26)
[2019-11-30] MEDS ORDERED: AZITHROMYCIN 250 MG TABLET PO ONE (23:30)
[2019-11-30] MEDS ORDERED: AMOX/CLAVULANATE 875 MG TABLET PO ONE (23:30)
--- NOTE | 2019-11-30 23:39 | NUR ---
Patient discharged to home in stable condition. Written and verbal after care instructions given. Patient verbalizes understanding of instruction. Pt ambulatory with a steady gait IV removed. Catheter intact and site benign. Pressure and 4x4 applied to site. No bleeding noted.
[2019-12-01 01:05] VITALS: BP 97/49
== END 2019-11-30 23:39 | disposition home or self-care (01) ==
LOC: ER 19:18
DX: J45.909 Unspecified asthma, uncomplicated (principal); B34.9 Viral infection, unspecified; D64.9 Anemia, unspecified; E87.6 Hypokalemia; I10 Essential (primary) hypertension; E78.00 Pure hypercholesterolemia, unspecified; Z79.899 Other long term (current) drug therapy
CPT/HCPCS: 36415; 71045-TC; 80048-TC; 81000-TC; 85025-TC; 87040-TC; 87086-TC; 87186-TC

== ENCOUNTER 2020-02-19 14:04 | Inpatient (IN) | payer MEDICAID ==
[~2020-02-19] VITALS: Ht 152.4 cm; Wt 68.9 kg
--- NOTE | 2020-02-19 14:26 | NUR ---
PER FAMILY WORSENING SOB AND CHEST PAIN. HX OF ASTHMA. REPORTS HAVING CHRONIC COUGH R/T ASTHMA. REPORTS PAIN LEVEL 4/10 AND SHARP. REST RELIEVES PAIN. NO ACUTE DISTRESS NOTED. PLACED IN GOWN, ON MONITOR, AND MADE COMFORTABLE. READY FOR EVAL.
--- NOTE | 2020-02-19 14:34 | NUR ---
PLACED PT ON 3L O2 VIA NC DUE TO SOB, 91% O2 SAT. NOW 99%
--- NOTE | 2020-02-19 14:41 | NUR ---
DR [place] AT BEDSIDE FOR EVAL.
[2020-02-19] MEDS ORDERED: ASPIRIN 81 MG TAB.CHEW ONE (14:53)
[2020-02-19] MEDS ORDERED: FAMO20TA8 PO (14:58)
[2020-02-19] MEDS ORDERED: ASPI-1169 PO (14:58)
[2020-02-19] MEDS ORDERED: ASPIRIN 81 MG TAB.CHEW PO ONE (15:00)
--- NOTE | 2020-02-19 15:03 | NUR ---
IV LINE ESTABLISHED, BLOOD DRAWN AND SENT TO STAT LAB. PT BRIAN WELL.
[2020-02-19 15:26] LABS: BASOPHILS # (AUTO) 0.1 /CMM (0.0-0.2); BASOPHILS % (AUTO) 0.7 % (0.0-2.0); EOSINOPHILS % (AUTO) 3.7 % (0.0-6.0); LYMPHOCYTES # (AUTO) 0.9 /CMM (0.8-4.8); MONOCYTES # (AUTO) 0.6 /CMM (0.1-1.30)
[2020-02-19 15:30] LABS: MEAN CORPUSCULAR HGB CONC 33 g/dl (31.0-36.0); MEAN CORPUSCULAR VOLUME 86 fL (82-100); NEUTROPHILS # (AUTO) 9.3 /CMM (1.8-8.9); NEUTROPHILS % (AUTO) 82.6 % (43.0-81.0); PLATELET COUNT (AUTO) 295 /CMM (150-450); RED BLOOD CELL COUNT(AUTO) 2.16 MIL/uL (4.0-5.2); WHITE BLOOD COUNT (AUTO) 11.2 K/uL (4.3-11.0)
[2020-02-19 15:34] LABS: CALCIUM, SERUM 8.2 mg/dL (8.5-10.1); CARBON DIOXIDE 26 mmol/L (21-32); CHLORIDE 98 mmol/L (98-107); CREATININE 4.7 mg/dL (0.6-1.3); GLUCOSE 144 mg/dL (74-106); POTASSIUM 4.6 mmol/L (3.5-5.1); SODIUM SERUM 138 mmol/L (136-145); UREA NITROGEN, BLOOD 59 mg/dL (7-18)
[2020-02-19 15:35] LABS: HEMATOCRIT 19 % (33-45); HEMOGLOBIN 6.1 g/dL (11.5-14.8)
[2020-02-19 15:46] LABS: ALANINE AMINOTRANSFERASE 13 U/L (12-78); ALBUMIN 2.4 g/dL (3.4-5.0); ALKALINE PHOSPHATASE 66 U/L (46-116); ASPARTATE AMINOTRANSFERASE 20 U/L (15-37); B-TYPE NATRIURETIC PEPTIDE 14764 PG/ML (0-125); BILIRUBIN,DIRECT 0.1 mg/dL (0.0-0.2); BILIRUBIN,TOTAL 0.8 mg/dL (0.2-1.0)
--- NOTE | 2020-02-19 15:47 | NUR ---
PT TAKEN TO RADIOLOGY [facility]IA [facility]
[2020-02-19 15:58] LABS: EOSINOPHILS % (MANUAL) 3 % (0-4); LYMPHOCYTES % (MANUAL) 8 % (16-48); MONOCYTES % (MANUAL) 3 % (0-11.0); NEUTROPHILS % (MANUAL) 85 (42-76); REACTIVE LYMPHOCYTES 1 % (0-0)
[2020-02-19] MEDS ORDERED: CEFTRIAXONE 1GM BAG (ER ONLY) 1 GM/50 ML PIGGYBACK IV ONE (16:00)
--- NOTE | 2020-02-19 16:12 | NUR ---
COVID AND RSV SWABS SENT TO LAB
[2020-02-19] MEDS ORDERED: CEFTRIAXONE 1GM BAG (ER ONLY) 50 ML IV ONE ×2 (16:21→16:30)
--- NOTE | 2020-02-19 16:25 | NUR ---
ROCEPHIN HANGING. WILL CONT TO MONITOR.
[2020-02-19] MEDS ORDERED: AZITHROMYCIN 500 MG in IV D5W 250 ML IV ONE (16:30)
--- NOTE | 2020-02-19 17:23 | NUR ---
NURSING SUP GAVE TELE BED 112-1.
[2020-02-19] MEDS ORDERED: FAMOTIDINE (20 MG) 20 MG TABLET PO PRN (17:30)
--- NOTE | 2020-02-19 17:57 | NUR ---
REPORT GIVEN TO RN MAY FOR 112-2
--- NOTE | 2020-02-19 17:57 | NUR ---
RN NOTES JUST RECEIVED REPORT VIA PHONE FROM ER NURSE/ARIN. PT NOT PRESENT YET IN THE UNIT. SCHEDULED ANY 5PM MEDS NOT GIVEN TO PT YET AT THIS TIME. AWAITING FOR PT TO ARRIVE.
[2020-02-19] MEDS ORDERED: FUROSEMIDE 20 MG/2 ML VIAL IV ONE (18:00)
[2020-02-19] MEDS ORDERED: MAG HYDROX/AL HYDROX/SIMETH 30 ML UDC PO PRN (18:00)
[2020-02-19] MEDS ORDERED: ONDANSETRON HCL/PF 4 MG/2 ML VIAL IVP PRN (18:00)
[2020-02-19] MEDS ORDERED: HYDROCODONE/APAP 5/325MG 1 EACH TABLET PO PRN (18:00)
[2020-02-19] MEDS ORDERED: MAGNESIUM HYDROXIDE 30 ML UDC PO PRN (18:00)
[2020-02-19] MEDS ORDERED: Z GUARD REMEDY 2 OZ OINT TP PRN (18:00)
[2020-02-19 18:05] LABS: IRON, SERUM 12 ug/dl (50-175); TOTAL IRON BINDING CAPACITY 237 ug/dl (250-450)
--- NOTE | 2020-02-19 18:16 | NUR ---
[facility]
[2020-02-19 18:19] LABS: FERRITIN 147 ng/mL (8-388)
[2020-02-19] MEDS: GABAPENTIN 300 MG CAPSULE PO SCH (18:36)
[2020-02-19] MEDS: MONTELUKAST SODIUM (10MG) 10 MG TABLET PO SCH (18:36)
--- NOTE | 2020-02-19 18:36 | NUR ---
RN NOTES CALLED TO PHARMACY AND SPOKE TO CONNOR. NOTIFIED REGARDING AZITHROMYCIN IV. AND TO VERIFY ORDERS.
--- NOTE | 2020-02-19 18:42 | NUR ---
RN NOTES RECEIVED PT FROM ER, ARRIVED IN THE UNIT AT 1815 VIA [facility]. HOOKED TO TELEMONITORING, SR 78. VITALS TAKEN AND RECORDED. PT A/O X3-4, LEBANESE SPEAKING ONLY. AMBULATORY AND WENT TO THE BATHROOM BY HERSELF WITH MINIMAL ASSIST. PT ON SUPPLEMENTARY OXYGEN AT 3L VIA NC, SATURATION OF 99%. PT DENIES ANY OPEN WOUNDS. ALSO RECEIVED PT WITH ONGOING AZITHROMYCIN IV 500MG FROM ER, INFUSING WELL WITH NO INFILTRATION NOTED. PT STATED MILD PAIN TO R SIDE OF ABDOMEN, TO NOTIFY ADMITTING MD/JOSE MIGUEL. PT KEPT COMFORTABLE IN BED. PT'S BED IN LOWEST, LOCKED POSITION WITH SR X3. CALL LIGHT KEPT WITHIN REACH. WILL ENDORSE TO INCOMING NIGHT NURSE FOR ADMISSION AND CONTINUITY OF CARE.
[2020-02-19 20:00] VITALS: BP 135/51
[2020-02-19 21:32] VITALS: BP 146/63
[2020-02-19 21:45] VITALS: BP 138/69
[2020-02-19 22:15] VITALS: BP 149/47
[2020-02-19 23:15] VITALS: BP 135/58
[2020-02-20] VITALS (7 sets, daily range): BP systolic 123–147; BP diastolic 50–85
--- NOTE | 2020-02-20 06:50 | NUR ---
rn notes in bed, comfortably resting with no distress noted. nasal canula at 2 lpm os well tolerated. no complaint of pain or discomfort. transfuse 1 pack of rbc at 2100, tolerated well. no adverse effect noted. vital sings wnl. aler and oriented. czech speaking onlu. kept clean and dry will endorse to next shift for continuity of care.
[2020-02-20 06:58] LABS: C-REACTIVE PROTEIN 19.2 mg/dL (0.0-0.9)
--- NOTE | 2020-02-20 07:45 | NUR ---
rn notes received patient in bed, awake, alert and orientedx4, st helenian speaking, on oxygen support via nasal cannula with oxygen at 3lpm, tolerating well. no shortness of breath. patient pale looking. eating breakfast at the moment. no complaints of pain at this time. sinus rhythm on the monitor with hr on the 80s. iv patient assisted in ambulating to the restroom and back to the room. able to walk with assistance, with noted sob on exerting effort. safety measures observed and maintained. srX2 up. call light placed within reach. will continue to monitor patient accordingly
[2020-02-20] MEDS: GABAPENTIN 300 MG CAPSULE PO SCH ×2 (08:23→17:35)
[2020-02-20] MEDS: AMLODIPINE BESYLATE 5 MG TABLET PO SCH (08:23)
[2020-02-20] MEDS ORDERED: ASPIRIN 81 MG TAB.CHEW PO SCH (09:00)
[2020-02-20] MEDS: NITROGLYCERIN 30 GM TUBE TP SCH ×2 (10:08→21:04)
[2020-02-20 10:10] LABS: CALCIUM, SERUM 8.1 mg/dL (8.5-10.1); CARBON DIOXIDE 25 mmol/L (21-32); CHLORIDE 100 mmol/L (98-107); GLUCOSE 97 mg/dL (74-106); POTASSIUM 4.1 mmol/L (3.5-5.1); SODIUM SERUM 139 mmol/L (136-145)
[2020-02-20 10:11] LABS: CREATININE 4.9 mg/dL (0.6-1.3); MAGNESIUM 1.9 mg/dL (1.8-2.4); PHOSPHORUS 7.7 mg/dL (2.5-4.9); UREA NITROGEN, BLOOD 55 mg/dL (7-18)
[2020-02-20 10:12] LABS: THYROID STIMULATING HORMONE 4.25 uIU/mL (0.358-3.74)
[2020-02-20 11:36] LABS: BASOPHILS # (AUTO) 0.1 /CMM (0.0-0.2); BASOPHILS % (AUTO) 0.7 % (0.0-2.0); EOSINOPHILS % (AUTO) 4.8 % (0.0-6.0); HEMATOCRIT 24 % (33-45); HEMOGLOBIN 8.2 g/dL (11.5-14.8); LYMPHOCYTES # (AUTO) 0.9 /CMM (0.8-4.8); MEAN CORPUSCULAR HGB CONC 34 g/dl (31.0-36.0); MEAN CORPUSCULAR VOLUME 86 fL (82-100); MONOCYTES # (AUTO) 0.6 /CMM (0.1-1.30); MONOCYTES % (AUTO) 7.4 % (2.0-12.0); NEUTROPHILS # (AUTO) 6.8 /CMM (1.8-8.9); NEUTROPHILS % (AUTO) 77.1 % (43.0-81.0); PLATELET COUNT (AUTO) 292 /CMM (150-450); RED BLOOD CELL COUNT(AUTO) 2.83 MIL/uL (4.0-5.2); WHITE BLOOD COUNT (AUTO) 8.8 K/uL (4.3-11.0)
[2020-02-20] MEDS: SOD FERRIC GLUC 125 MG in IV NS 0.9% 100 ML IV SCH (15:09)
[2020-02-20] MEDS ORDERED: AZITHROMYCIN 250 MG in IV D5W 250 ML IV SCH (16:00)
--- NOTE | 2020-02-20 16:00 | NUR ---
rn notes patient assisted on the restroom with noted shortness of breath. oxygen increase to 5lpm temporarily. will continue to monitor. patient informed that its not recommended for her to exert as much effort at this time Addendum: 02/20/20 at 1920 by BRIAN CORRIGAN RN patient verbalize understanding
[2020-02-20] MEDS: AZITHROMYCIN 500 MG in IV D5W 250 ML IV SCH (16:52)
[2020-02-20] MEDS: FLUTICASONE/VILANTEROL 1 EACH BLST.W.DEV IH SCH (17:35)
[2020-02-20] MEDS: MONTELUKAST SODIUM (10MG) 10 MG TABLET PO SCH (17:36)
[2020-02-20] MEDS: SEVELAMER CARBONATE 800 MG TABLET PO SCH (17:36)
[2020-02-20] MEDS ORDERED: EPOETIN ALFA (20,000 UNIT) 20,000 UNIT/ML VIAL SQ ONE (18:00)
[2020-02-20] MEDS: CEFTRIAXONE 1 G in IV D5W 50 ML IV SCH (18:39)
--- NOTE | 2020-02-20 19:15 | NUR ---
RN OPENING NOTES: PATIENT IN BED, AWAKE, AND VERBALLY RESPONSIVE. NO SOB. ON O2 AT 3 LITERS VIA NC, TOLERATING WELL, O2 SAT >95%. NO C/O PAIN. PATIENT HAS (R) AC G20, C/D/I, FLUSHING WELL; SL. BED LOCKED, ALARM ON, LOW POSITION. HOB ELEVATED. ON DROPLET ISO FOR R/O COVID, PENDING RESULT. CALL LIGHT PLACED WITHIN REACH. WILL CONT. TO MONITOR.
--- NOTE | 2020-02-20 19:20 | NUR ---
rn notes endorsed for continuity of care. patient calm in bed in bed. tolerating oxygen at 3lpm, sating fine. no shortness of breath noted at this time. safety measures in place. call light within reach
[2020-02-20 23:31] LABS: APPEARANCE,URINE SL CLOUDY (CLEAR); BILIRUBIN,URINE NEGATIVE (NEGATIVE); BLOOD, URINE LARGE Ery/uL (NEGATIVE); COLOR,URINE YELLOW (YELLOW); KETONES,URINE NEGATIVE (NEGATIVE); LEUKOCYTE ESTERASE ,URINE TRACE (NEGATIVE); NITRITE, URINE NEGATIVE (NEGATIVE); PROTEIN,URINE 100 mg/dl (NEGATIVE); UGLUCOSE NEGATIVE (NEGATIVE); UROBILINOGEN,URINE 0.2 EU/dL (0.2)
[2020-02-20 23:39] LABS: CREATININE, URINE 36.6 MG/DL (30.0-125.0); URINE TOTAL PROTEIN 322.5 mg/dL (0-11.9)
[2020-02-21] VITALS: BP 130/57
[2020-02-21 00:18] LABS: BACTERIA,URINE Few /HPF (None Seen); RBC,URINE TOO NUMEROUS TO COUN /HPF (0-2); SQUAMOUS EPITHELIAL CELL,UR Few /HPF (None Seen); WBC,URINE 51-80 /HPF (0-3)
[2020-02-21 04:00] VITALS: BP 159/72
--- NOTE | 2020-02-21 06:25 | NUR ---
RN CLOSING NOTES: PATIENT IN BED, ASLEEP, EASILY AROUSABLE. AAOX4. NO SOB. NO CHEST PAIN DURING SHIFT. SAFETY PRECAUTIONS HAVE BEEN IMPLEMENTED. BED LOCKED, ALARM ON, LOW POSITION. SIDE RAILS X 2 UP. HOB ELEVATED. NO BM DURING SHIFT. PENDING STOOL OB. WILL ENDORSE TO AM SHIFT NURSE FOR CONTINUITY OF CARE.
[2020-02-21 06:34] LABS: BASOPHILS % (AUTO) 0.4 % (0.0-2.0); HEMATOCRIT 22 % (33-45); HEMOGLOBIN 7.3 g/dL (11.5-14.8); LYMPHOCYTES # (AUTO) 0.9 /CMM (0.8-4.8); LYMPHOCYTES % (AUTO) 7.4 % (20.0-44.0); MEAN CORPUSCULAR HGB CONC 34 g/dl (31.0-36.0); MEAN CORPUSCULAR VOLUME 86 fL (82-100); MONOCYTES # (AUTO) 0.7 /CMM (0.1-1.30); MONOCYTES % (AUTO) 5.9 % (2.0-12.0); NEUTROPHILS # (AUTO) 9.9 /CMM (1.8-8.9); NEUTROPHILS % (AUTO) 82.3 % (43.0-81.0); PLATELET COUNT (AUTO) 287 /CMM (150-450); RED BLOOD CELL COUNT(AUTO) 2.54 MIL/uL (4.0-5.2)
[2020-02-21 06:48] LABS: ALANINE AMINOTRANSFERASE 10 U/L (12-78); ALBUMIN 2.2 g/dL (3.4-5.0); ALKALINE PHOSPHATASE 65 U/L (46-116); ASPARTATE AMINOTRANSFERASE 13 U/L (15-37); BILIRUBIN,TOTAL 0.5 mg/dL (0.2-1.0); CALCIUM, SERUM 8.3 mg/dL (8.5-10.1); CARBON DIOXIDE 27 mmol/L (21-32); CHLORIDE 98 mmol/L (98-107); CREATININE 4.9 mg/dL (0.6-1.3); GLUCOSE 99 mg/dL (74-106); MAGNESIUM 1.9 mg/dL (1.8-2.4); PHOSPHORUS 7.3 mg/dL (2.5-4.9); POTASSIUM 3.4 mmol/L (3.5-5.1); SODIUM SERUM 137 mmol/L (136-145); TOTAL PROTEIN, SERUM 6.6 g/dL (6.4-8.2); UREA NITROGEN, BLOOD 57 mg/dL (7-18)
[2020-02-21 06:50] LABS: CREATINE KINASE, TOTAL 40 U/L (26-192)
--- NOTE | 2020-02-21 07:40 | NUR ---
WRITER TECHNICAL PUBLICATIONS NOTES PATIENT RESTING IN BED, NO RESPIRATORY DISTRESS, ON O2 AT 3L VIA NASAL CANULA. NO COMPLAINT OF PAIN AT THIS TIME. SKIN WARM TO TOUCH, IV ACCESS SITE INTACT AND PATENT. PATIENT'S NEEDS ATTENDED, BED ON LOWEST LOCKED POSITION, CALL LIGHT WITHIN REACH. WILL CONTINUE TO MONITOR.
[2020-02-21 08:00] VITALS: BP 133/66
[2020-02-21] MEDS: SEVELAMER CARBONATE 800 MG TABLET PO SCH ×3 (08:39→17:16)
[2020-02-21] MEDS: GABAPENTIN 300 MG CAPSULE PO SCH ×2 (08:39→17:16)
[2020-02-21] MEDS: AMLODIPINE BESYLATE 5 MG TABLET PO SCH (08:40)
[2020-02-21] MEDS: NITROGLYCERIN 30 GM TUBE TP SCH ×2 (08:42→20:09)
[2020-02-21] MEDS: FLUTICASONE/VILANTEROL 1 EACH BLST.W.DEV IH SCH ×2 (09:05→17:16)
[2020-02-21 12:00] VITALS: BP_SYST 130; BP_SYST 138; BP_DIAS 70; BP_DIAS 72
[2020-02-21] MEDS: SOD FERRIC GLUC 125 MG in IV NS 0.9% 100 ML IV SCH (14:31)
[2020-02-21 16:00] VITALS: BP 130/72
[2020-02-21] MEDS: AZITHROMYCIN 500 MG in IV D5W 250 ML IV SCH (16:41)
--- NOTE | 2020-02-21 16:45 | NUR ---
STENO TYPIST NOTES PATIENT RESTING IN BED, NO RESPIRATORY DISTRESS, ON O2 AT 3L VIA NASAL CANULA. DETECTIVE CAPTAIN ON NSR 80, NO COMPLAINT OF PAIN AT THIS TIME. SKIN WARM TO TOUCH, IV ACCESS SITE INTACT AND PATENT. PATIENT'S NEEDS ATTENDED, BED ON LOWEST LOCKED POSITION, CALL LIGHT WITHIN REACH. WILL ENDORSE TO ONCOMING NURSE.
[2020-02-21] MEDS: MONTELUKAST SODIUM (10MG) 10 MG TABLET PO SCH (17:16)
[2020-02-21] MEDS: CEFTRIAXONE 1 G in IV D5W 50 ML IV SCH (18:35)
--- NOTE | 2020-02-21 19:10 | NUR ---
heel breaster opening notes Received Pt from morning nurse. Pt is resting in bed comfortably. Pt is alert and orientedX4. Respiration is normal in 3 L NC. No SOB. No S/S of distress noted. Tele monitor showed SR HR @ 98 bpm. Iv sites at RAC# 20 is clean, intact, and patent. Bed at low position, brakes locked, side rails upX2 and call light is within reach. Will continue to monitor.
[2020-02-21 20:00] VITALS: BP 141/58
[2020-02-21] MEDS: ACETAMINOPHEN 325 MG TABLET PO PRN (20:08)
--- NOTE | 2020-02-21 20:08 | NUR ---
Navneet SAENZ notes Pt's temp is 99.8. Administered tylenol 325mg/2 tabs/po as ordered for fever. Will continue to monitor. Addendum: 02/21/20 at 2027 by ISRAEL MAN RN Ghulam ortiz
--- NOTE | 2020-02-21 21:30 | NUR ---
shot polisher and inspector notes Pt's temp is 98.2 F. Will continue to monitor.
--- NOTE | 2020-02-21 22:15 | NUR ---
cardiology fellow notes Called and informed Robin Ryder HOSPICE CARE SALES CONSULTANT regarding Pt's potassium in am. Pt's potassium was 3.4. Tele monitor showed SR HR at 95. Received order from HOSPICE CARE SALES CONSULTANT for potassium 20 meq/once/1 tab/po. Order carried out. Charge nurse is aware and informed.
[2020-02-21] MEDS ORDERED: POTASSIUM CHLORIDE 20 MEQ TAB.PRT.SR PO ONE (22:30)
[2020-02-22] VITALS: BP 137/58
[2020-02-22 04:00] VITALS: BP 144/66
[2020-02-22 06:13] LABS: APPEARANCE,URINE SL CLOUDY (CLEAR); BILIRUBIN,URINE NEGATIVE (NEGATIVE); BLOOD, URINE LARGE Ery/uL (NEGATIVE); COLOR,URINE YELLOW (YELLOW); KETONES,URINE NEGATIVE (NEGATIVE); LEUKOCYTE ESTERASE ,URINE NEGATIVE (NEGATIVE); NITRITE, URINE NEGATIVE (NEGATIVE); PROTEIN,URINE >=300 mg/dl (NEGATIVE); UGLUCOSE NEGATIVE (NEGATIVE); UROBILINOGEN,URINE 0.2 EU/dL (0.2)
[2020-02-22 06:16] LABS: COMPLEMENT C3, SERUM 115 mg/dL (82-167); COMPLEMENT C4, SERUM 26 mg/dL (14-44)
--- NOTE | 2020-02-22 06:40 | NUR ---
inspector circuitry negative closing notes Pt is resting in bed comfortably. Pt is alert and orientedx4. Respiration is normal in 3 L NC. No SOB. No S/S of distress noted. VS is stable. Afebrile. Tele monitor showed SR HR at 76 bpm. Iv sites at RAC# 20 is clean, intact, patent and SL. Routine meds were given as ordered. Kept Pt clean, dry and comfortable. All needs met and attended. Safety precautions is maintained. Bed at low position, brakes locked, side rails upX2 and call light is within reach. Will endorse to morning nurse for [place].
[2020-02-22 06:52] LABS: ALANINE AMINOTRANSFERASE 10 U/L (12-78); ALBUMIN 1.9 g/dL (3.4-5.0); ALKALINE PHOSPHATASE 61 U/L (46-116); ASPARTATE AMINOTRANSFERASE 13 U/L (15-37); BILIRUBIN,TOTAL 0.4 mg/dL (0.2-1.0); CALCIUM, SERUM 8.3 mg/dL (8.5-10.1); CARBON DIOXIDE 27 mmol/L (21-32); CHLORIDE 97 mmol/L (98-107); CREATININE 5.3 mg/dL (0.6-1.3); GLUCOSE 98 mg/dL (74-106); MAGNESIUM 1.8 mg/dL (1.8-2.4); POTASSIUM 3.6 mmol/L (3.5-5.1); SODIUM SERUM 135 mmol/L (136-145); TOTAL PROTEIN, SERUM 6.1 g/dL (6.4-8.2); UREA NITROGEN, BLOOD 52 mg/dL (7-18)
[2020-02-22 06:58] LABS: URINE TOTAL PROTEIN 447.7 mg/dL (0-11.9)
[2020-02-22 07:00] LABS: BACTERIA,URINE Few /HPF (None Seen); RBC,URINE 51-80 /HPF (0-2); SQUAMOUS EPITHELIAL CELL,UR Few /HPF (None Seen)
[2020-02-22 07:06] LABS: PTH, INTACT 129 pg/mL (15-65)
[2020-02-22 07:07] LABS: BASOPHILS # (AUTO) 0.1 /CMM (0.0-0.2); BASOPHILS % (AUTO) 0.6 % (0.0-2.0); LYMPHOCYTES # (AUTO) 1.1 /CMM (0.8-4.8); LYMPHOCYTES % (AUTO) 11.9 % (20.0-44.0); MEAN CORPUSCULAR HGB CONC 34 g/dl (31.0-36.0); MEAN CORPUSCULAR VOLUME 86 fL (82-100); MONOCYTES # (AUTO) 0.6 /CMM (0.1-1.30); MONOCYTES % (AUTO) 6.7 % (2.0-12.0); NEUTROPHILS # (AUTO) 7.3 /CMM (1.8-8.9); NEUTROPHILS % (AUTO) 77.8 % (43.0-81.0); PLATELET COUNT (AUTO) 247 /CMM (150-450); RED BLOOD CELL COUNT(AUTO) 2.34 MIL/uL (4.0-5.2); WHITE BLOOD COUNT (AUTO) 9.4 K/uL (4.3-11.0)
[2020-02-22 07:22] LABS: EOSINOPHIL,URINE None Seen
[2020-02-22 07:41] LABS: HEMATOCRIT 20 % (33-45); HEMOGLOBIN 6.8 g/dL (11.5-14.8)
[2020-02-22 07:54] LABS: EOSINOPHILS % (MANUAL) 3 % (0-4); LYMPHOCYTES % (MANUAL) 16 % (16-48); MONOCYTES % (MANUAL) 3 % (0-11.0); NEUTROPHILS % (MANUAL) 78 (42-76)
[2020-02-22 08:00] VITALS: BP 146/68
[2020-02-22] MEDS: FLUTICASONE/VILANTEROL 1 EACH BLST.W.DEV IH SCH ×2 (08:46→17:37)
[2020-02-22] MEDS: SEVELAMER CARBONATE 800 MG TABLET PO SCH ×3 (08:46→17:36)
[2020-02-22] MEDS: GABAPENTIN 300 MG CAPSULE PO SCH ×2 (08:46→17:36)
[2020-02-22] MEDS: AMLODIPINE BESYLATE 5 MG TABLET PO SCH (08:46)
[2020-02-22] MEDS: NITROGLYCERIN 30 GM TUBE TP SCH ×2 (08:47→20:42)
[2020-02-22 08:52] LABS: *SPE A/G RATIO 0.8 (0.7-1.7); *SPE ALBUMIN 2.4 g/dL (2.9-4.4); *SPE ALPHA-1-GLOBULIN 0.4 g/dL (0.0-0.4); *SPE ALPHA-2-GLOBULIN 0.9 g/dL (0.4-1.0); *SPE BETA GLOBULIN 0.8 g/dL (0.7-1.3); *SPE GLOBULIN, TOTAL 3.2 g/dL (2.2-3.9); *SPE M-SPIKE Not Observed g/dL (Not Observed); *SPEGAMMA GLOBULIN 1.1 g/dL (0.4-1.8)
[2020-02-22 11:52] LABS: BASOPHILS # (AUTO) 0.1 /CMM (0.0-0.2); BASOPHILS % (AUTO) 0.5 % (0.0-2.0); EOSINOPHILS % (AUTO) 4.4 % (0.0-6.0); HEMATOCRIT 25 % (33-45); HEMOGLOBIN 8.1 g/dL (11.5-14.8); LYMPHOCYTES # (AUTO) 1.4 /CMM (0.8-4.8); LYMPHOCYTES % (AUTO) 10.5 % (20.0-44.0); MEAN CORPUSCULAR HGB CONC 33 g/dl (31.0-36.0); MEAN CORPUSCULAR VOLUME 87 fL (82-100); MONOCYTES # (AUTO) 0.9 /CMM (0.1-1.30); MONOCYTES % (AUTO) 7.1 % (2.0-12.0); NEUTROPHILS # (AUTO) 10.1 /CMM (1.8-8.9); NEUTROPHILS % (AUTO) 77.5 % (43.0-81.0); PLATELET COUNT (AUTO) 328 /CMM (150-450); RED BLOOD CELL COUNT(AUTO) 2.86 MIL/uL (4.0-5.2); WHITE BLOOD COUNT (AUTO) 13.1 K/uL (4.3-11.0)
[2020-02-22 12:00] VITALS: BP 151/59
[2020-02-22] MEDS: SOD FERRIC GLUC 125 MG in IV NS 0.9% 100 ML IV SCH (14:06)
[2020-02-22 16:00] VITALS: BP_SYST 136; BP_SYST 146; BP_DIAS 61; BP_DIAS 68
[2020-02-22 16:07] LABS: *ANA ANTI-CENTROMERE B AB <0.2 AI (0.0-0.9); *ANA ANTI-DNA(DS) AB, QN 1 IU/mL (0-9); *ANA ANTI-JO-1 <0.2 AI (0.0-0.9); *ANA ANTICHROMATIN ANTIBODY <0.2 AI (0.0-0.9); *ANA RNP ANTIBODIES 0.2 AI (0.0-0.9); *ANA SJOGREN'S ANTI-SS-A <0.2 AI (0.0-0.9); *ANA SJOGREN'S ANTI-SS-B <0.2 AI (0.0-0.9); *ANAANTI-SCLERODERMA-70 AB <0.2 AI (0.0-0.9); *ANASMITH AB <0.2 AI (0.0-0.9)
[2020-02-22] MEDS: AZITHROMYCIN 500 MG in IV D5W 250 ML IV SCH (16:32)
[2020-02-22] MEDS: CEFTRIAXONE 1 G in IV D5W 50 ML IV SCH (17:37)
[2020-02-22] MEDS: MONTELUKAST SODIUM (10MG) 10 MG TABLET PO SCH (17:39)
--- NOTE | 2020-02-22 19:30 | NUR ---
Pt is resting in bed comfortably. Pt is alert and orientedx4,Polish speaking only. Breathing unlabored on 3 L NC. No SOB. No S/S of distress noted. VS is stable. Afebrile. On Tele SR HR at 82 bpm. Iv sites at RAC# 20 is intact, patent and SL. Meds given crashed per patient's request. Kept Pt clean, dry and comfortable.Patient able to use bathroom with assistance. All needs met and attended. Safety precautions maintained. Bed at low position, brakes locked, side rails upX2 and call light is within reach. Will endorse to next shift nurse for [place].
[2020-02-22 20:00] VITALS: BP 142/63
--- NOTE | 2020-02-22 20:18 | NUR ---
Received report from LETTY Seaman for [place].
[2020-02-23] VITALS: BP 119/55
[2020-02-23 04:00] VITALS: BP 128/57
[2020-02-23 06:46] LABS: BASOPHILS # (AUTO) 0.1 /CMM (0.0-0.2); BASOPHILS % (AUTO) 0.7 % (0.0-2.0); EOSINOPHILS % (AUTO) 5.5 % (0.0-6.0); HEMATOCRIT 22 % (33-45); HEMOGLOBIN 7.4 g/dL (11.5-14.8); LYMPHOCYTES # (AUTO) 1.4 /CMM (0.8-4.8); LYMPHOCYTES % (AUTO) 11.3 % (20.0-44.0); MEAN CORPUSCULAR HGB CONC 34 g/dl (31.0-36.0); MEAN CORPUSCULAR VOLUME 86 fL (82-100); MONOCYTES # (AUTO) 0.8 /CMM (0.1-1.30); MONOCYTES % (AUTO) 6.9 % (2.0-12.0); NEUTROPHILS # (AUTO) 9.2 /CMM (1.8-8.9); NEUTROPHILS % (AUTO) 75.6 % (43.0-81.0); PLATELET COUNT (AUTO) 290 /CMM (150-450); RED BLOOD CELL COUNT(AUTO) 2.55 MIL/uL (4.0-5.2); WHITE BLOOD COUNT (AUTO) 12.1 K/uL (4.3-11.0)
--- NOTE | 2020-02-23 06:47 | NUR ---
RN CLOSING NOTE: Pt resting in bed, A&Ox4. On 3L NC tolerating well. No respiratory distress or SOB noted. On tele monitor showing SR. Covid-19 results back, negative. IV site RAC patent and flushing. Dressing c/d/i. Safety measures in place. Will endorse to AM nurse for [place].
[2020-02-23 06:49] LABS: CALCIUM, SERUM 8.4 mg/dL (8.5-10.1); CARBON DIOXIDE 26 mmol/L (21-32); CHLORIDE 97 mmol/L (98-107); CREATININE 5.4 mg/dL (0.6-1.3); GLUCOSE 97 mg/dL (74-106); MAGNESIUM 1.9 mg/dL (1.8-2.4); PHOSPHORUS 7.1 mg/dL (2.5-4.9); POTASSIUM 3.6 mmol/L (3.5-5.1); SODIUM SERUM 135 mmol/L (136-145); UREA NITROGEN, BLOOD 52 mg/dL (7-18)
[2020-02-23 08:00] VITALS: BP 130/72
[2020-02-23] MEDS: SEVELAMER CARBONATE 800 MG TABLET PO SCH ×4 (08:00→17:21)
[2020-02-23 12:00] VITALS: BP 133/54
[2020-02-23] MEDS: AMLODIPINE BESYLATE 5 MG TABLET PO SCH (12:09)
[2020-02-23] MEDS: GABAPENTIN 300 MG CAPSULE PO SCH ×2 (12:09→17:21)
[2020-02-23] MEDS: FLUTICASONE/VILANTEROL 1 EACH BLST.W.DEV IH SCH ×2 (12:10→17:21)
[2020-02-23] MEDS: SOD FERRIC GLUC 125 MG in IV NS 0.9% 100 ML IV SCH (15:42)
[2020-02-23] MEDS: AZITHROMYCIN 500 MG in IV D5W 250 ML IV SCH (15:43)
[2020-02-23 16:00] VITALS: BP 146/71
[2020-02-23] MEDS: NITROGLYCERIN 30 GM TUBE TP SCH ×2 (17:00→21:48)
--- NOTE | 2020-02-23 17:00 | NUR ---
RECEIVED PT RECEIVED PT FROM SALEEM SAENZ. PT IN HER ROOM RESTING COMFORTABLE IN BED. AOX4. BRITISH SPEAKING ONLY. ON TELE MONITOR WITH SINUS RYTHYM. AMBULATORY WITH ASSISTANCE. IV ACCESS ON L HAND G24. NO S/S OF INFILTRATION OR INFECTION NOTED. IV ACCESS FLUSHING WELL. PER SALEEM SAENZ MD IS AWARE OF PTS H AND H TODAY. WILL CONTINUE TO MONITOR.
[2020-02-23] MEDS: CEFTRIAXONE 1 G in IV D5W 50 ML IV SCH (17:21)
[2020-02-23] MEDS: MONTELUKAST SODIUM (10MG) 10 MG TABLET PO SCH (17:22)
--- NOTE | 2020-02-23 17:30 | NUR ---
ADMINISTERED PM MEDS ADMINISTERED PM MEDS SCHEDULED. TOLERATED WELL.
--- NOTE | 2020-02-23 18:00 | NUR ---
RN CLOSING NOTE: Pt resting in bed, A&Ox4. Kazakh speaking only. On 3L NC tolerating well, but noted expiratory wheezes upon auscultation this AM. Wheezes subsided after breathing tx's and inhaled meds this AM. NO distress noted or reported. No respiratory distress or SOB noted. On tele monitor showing SR. All Safety measures in place. Pt safety maintained during shift. SBAR report given to LETTY Madrigal for continuity of care.
--- NOTE | 2020-02-23 18:22 | NUR ---
STOOL FOR OB PER DR. HERNANDEZ TO REORDER STOOL FOR OB. PT DOES NOT HAVE A BM AT THIS TIME. WILL COLLECT SOON STOOL IS AVAILABLE.
--- NOTE | 2020-02-23 18:28 | NUR ---
GOAT FARMER CLOSING NOTE PT FROM SALEEM SAENZ. PT IN HER ROOM RESTING COMFORTABLE IN BED. AOX4. SOMALI SPEAKING ONLY. ON TELE MONITOR WITH SINUS RYTHYM. AMBULATORY WITH ASSISTANCE. IV ACCESS ON L HAND G24. NO S/S OF INFILTRATION OR INFECTION NOTED. IV ACCESS FLUSHING WELL. STILL AWAITING FOR STOOL TO BE COLLECTED FOR OCCULT BLOOD. WILL ENDORSE TO ONCOMING SHIFT.
--- NOTE | 2020-02-23 19:20 | NUR ---
FIBERGLASS MODEL MAKER RECEIVE PT A/O X 4 ON CARDIAC MONITORING, SR 94 HR RESPIRATIONS EVEN AND UNLABORED, STABLE. NO S/S OF DISTRESS, 02 SAT 100%. SAFETY MEASURES AT ALL TIMES. WILL CONT TO MONITOR
[2020-02-23 20:00] VITALS: BP_SYST 128; BP_SYST 143; BP_DIAS 51; BP_DIAS 67
[2020-02-24] VITALS (12 sets, daily range): BP systolic 110–140; BP diastolic 55–78
[2020-02-24 06:13] LABS: BASOPHILS # (AUTO) 0.1 /CMM (0.0-0.2); BASOPHILS % (AUTO) 0.6 % (0.0-2.0); HEMATOCRIT 21 % (33-45); LYMPHOCYTES % (AUTO) 8.4 % (20.0-44.0); MEAN CORPUSCULAR HGB CONC 33 g/dl (31.0-36.0); MEAN CORPUSCULAR VOLUME 86 fL (82-100); MONOCYTES # (AUTO) 0.8 /CMM (0.1-1.30); MONOCYTES % (AUTO) 6.5 % (2.0-12.0); NEUTROPHILS # (AUTO) 9.2 /CMM (1.8-8.9); NEUTROPHILS % (AUTO) 79.5 % (43.0-81.0); PLATELET COUNT (AUTO) 260 /CMM (150-450); RED BLOOD CELL COUNT(AUTO) 2.41 MIL/uL (4.0-5.2); WHITE BLOOD COUNT (AUTO) 11.6 K/uL (4.3-11.0)
--- NOTE | 2020-02-24 06:13 | NUR ---
PIPING SUPERVISOR PT ASLEEP AND EASILY AWAKEN, SLEPT WELL AND MONITORED ACCORDINGLY. NO SOB, NO CHEST PAIN. NO ACTIVE BLEEDING, ALL NEEDS ATTENDED AND ANTICIPATED, KEPT CLEAN, DRY AND COMFORTABLE. ON CARDIAC MONITORING SR 96 HR IN TELE MONITOR. NURSING CARE RENDERED. SAFETY MEASURES AT ALL TIMES. NO BOWEL MOVEMENT AT THIS TIME OFFERED MILK OF MAGNESIA LAST NIGHT PT REFUSED VERBALIZED "I HAD BOWEL MOVEMENT YESTERDAY 02/22/2020 IM NOT CONSTIPATED". DESPITE EXPLAINING RISKS AND BENEFITS WILL CONT TO ENDORSE POC.
[2020-02-24 06:33] LABS: HEMOGLOBIN 6.9 g/dL (11.5-14.8)
[2020-02-24 06:34] LABS: CALCIUM, SERUM 8.1 mg/dL (8.5-10.1); CARBON DIOXIDE 27 mmol/L (21-32); CHLORIDE 93 mmol/L (98-107); CREATININE 5.3 mg/dL (0.6-1.3); GLUCOSE 112 mg/dL (74-106); POTASSIUM 3.5 mmol/L (3.5-5.1); SODIUM SERUM 131 mmol/L (136-145); UREA NITROGEN, BLOOD 50 mg/dL (7-18)
--- NOTE | 2020-02-24 06:34 | NUR ---
LAB CALLED CRITICAL LOW HGB 6.08/06 PAGED HOSPITALIST AWAITING CALL BACK
--- NOTE | 2020-02-24 06:40 | NUR ---
RECEIVE VERBAL NEW ORDERS FROM [facility]PITALIST RELAYED RECENT HGB ORDER TO TRANSFUSE 1 PRBC READ BACK AND VERIFIED ORDERS NOTED AND CARRIED OUT. NOTHING FOLLOW
--- NOTE | 2020-02-24 06:51 | NUR ---
ENDORSE TO NEXT SHIFT POC PT NO ACTIVE BLEEDING AT THIS TIME
--- NOTE | 2020-02-24 06:55 | NUR ---
FF UP LAB PER LAB THEY WILL CALL WHEN THE BLOOD IS READY
[2020-02-24 07:17] LABS: EOSINOPHILS % (MANUAL) 2 % (0-4); LYMPHOCYTES % (MANUAL) 5 % (16-48); MONOCYTES % (MANUAL) 5 % (0-11.0); NEUTROPHILS % (MANUAL) 88 (42-76)
--- NOTE | 2020-02-24 07:30 | NUR ---
MANNEQUIN REFINISHER OPENING NOTES RECEIVED PT IN BED, ASLEEP, EASILY AROUSED. A/O X4. GRENADIAN SPEAKING, CAN UNDERSTAND A LITTLE NEW ZEALANDER. PT ON SUPPLEMENTARY OXYGEN AT 2-3LPM, WITH NO ACUTE RESPIRATORY DISTRESS NOTED. PT DENIES PAIN OR ANY DISCOMFORT AT THIS TIME. PT DENIES ANY CONCERNS AT THIS TIME WELL. ON TELEMONITORING WITH SR 92. PIV TO LEFT HAND 24 SL, INTACT. PER NIGHT NURSE, PT'S HGB IS 6.9, AWAITING FOR BLOOD BANK TO CALL BACK. PT MADE AWARE REGARDING BLOOD TRANSFUSION CONSENT. PT KEPT COMFORTABLE IN BED. PT'S BED IN LOWEST, LOCKED POSITION WITH SR X3. CALL LIGHT KEPT WITHIN REACH. WILL CONTINUE PLAN OF CARE.
[2020-02-24] MEDS: SEVELAMER CARBONATE 800 MG TABLET PO SCH ×3 (08:00→17:08)
[2020-02-24] MEDS: GABAPENTIN 300 MG CAPSULE PO SCH ×2 (08:01→16:37)
[2020-02-24] MEDS: FLUTICASONE/VILANTEROL 1 EACH BLST.W.DEV IH SCH ×2 (08:03→16:40)
[2020-02-24] MEDS: AMLODIPINE BESYLATE 5 MG TABLET PO SCH (08:13)
[2020-02-24] MEDS: NITROGLYCERIN 30 GM TUBE TP SCH ×2 (08:13→20:34)
--- NOTE | 2020-02-24 09:10 | NUR ---
FINISH MILL OPERATOR NOTES CALLED BLOOD BANK TO VERIFY PT FOR TRANSFUSION. PER BLOOD BANK, THEY'LL CALL BACK WHEN BLOOD IS READY. PT MADE AWARE AND SIGNDD WRITTEN CONSENT.
[2020-02-24] MEDS ORDERED: SOD FERRIC GLUC 125 MG in IV NS 0.9% 100 ML IV SCH (14:00)
[2020-02-24] MEDS: SOD FERRIC GLUC 125 MG in IV NS 0.9% 100 ML IV SCH (14:22)
--- NOTE | 2020-02-24 14:30 | NUR ---
RN NOTES EPOGEN SQ X1 GIVEN TO RLQ OF ABDOMEN. WILL CONTINUE TO MONITOR.
[2020-02-24] MEDS ORDERED: EPOETIN ALFA (20,000 UNIT) 20,000 UNIT/ML VIAL SQ ONE (15:00)
[2020-02-24 15:24] LABS: APPEARANCE,URINE SL CLOUDY (CLEAR); BILIRUBIN,URINE NEGATIVE (NEGATIVE); BLOOD, URINE LARGE Ery/uL (NEGATIVE); COLOR,URINE YELLOW (YELLOW); KETONES,URINE NEGATIVE (NEGATIVE); LEUKOCYTE ESTERASE ,URINE TRACE (NEGATIVE); NITRITE, URINE NEGATIVE (NEGATIVE); PH,URINE 6.5 (5.0-8.0); PROTEIN,URINE >=300 mg/dl (NEGATIVE); UGLUCOSE 100 MG/DL mg/dL (NEGATIVE); UROBILINOGEN,URINE 0.2 EU/dL (0.2)
[2020-02-24 15:30] LABS: RBC,URINE TOO NUMEROUS TO COUN /HPF (0-2)
[2020-02-24 15:31] LABS: BACTERIA,URINE 1+ /HPF (None Seen); SQUAMOUS EPITHELIAL CELL,UR Few /HPF (None Seen); URINE AMORPHOUS URATE Few /HPF (None Seen); WBC,URINE 21-50 /HPF (0-3)
[2020-02-24 15:32] LABS: COARSE GRANULAR CASTS,URINE Few /LPF (None Seen)
[2020-02-24 15:39] LABS: CREATININE, URINE 39.3 MG/DL (30.0-125.0); URINE TOTAL PROTEIN 451.6 mg/dL (0-11.9)
[2020-02-24 15:48] LABS: EOSINOPHIL,URINE Rare
[2020-02-24] MEDS: AZITHROMYCIN 500 MG in IV D5W 250 ML IV SCH (16:14)
[2020-02-24] MEDS: MONTELUKAST SODIUM (10MG) 10 MG TABLET PO SCH (17:08)
[2020-02-24] MEDS: CEFTRIAXONE 1 G in IV D5W 50 ML IV SCH (17:37)
--- NOTE | 2020-02-24 18:41 | NUR ---
VIDEO SURVEILLANCE TECHNICIAN CLOSING NOTES PT REMAINS IN BED, INTERMITTENTLY DOZING OFF, EASILY AROUSED. A/O X4. FRENCH SPEAKING, CAN UNDERSTAND A LITTLE BELARUSIAN. PT ON SUPPLEMENTARY OXYGEN AT 2-3LPM, WITH NO ACUTE RESPIRATORY DISTRESS NOTED. PT DENIES PAIN OR ANY DISCOMFORT AT THIS TIME. ON TELEMONITORING WITH SR 90. PIV TO LEFT HAND 24 SL AND RIGHT WRIST G20, FLUSHED WITH NS, INTACT AND OPERATIONAL. ALL NEEDS AND CARE ATTENDED. PT KEPT COMFORTABLE IN BED. PT'S BED IN LOWEST, LOCKED POSITION WITH SR X3. CALL LIGHT KEPT WITHIN REACH. WILL ENDORSE TO INCOMING NIGHT NURSE FOR [place].
--- NOTE | 2020-02-24 20:00 | NUR ---
RN NOTES ALERT AND ORIENTED X4, 4LPM VIA NC, NO COMPLAIN OF PAIN, NEGATIVE COVID, GENERALIZED WEAKNESS, INTERMITTENT DRY COUGH, CONTINENT OF BOWEL AND BLADDER, ASSISTED WITH AMBULATION, WILL CONTINUE TO MONITOR.
[2020-02-25] VITALS (9 sets, daily range): BP systolic 127–141; BP diastolic 64–83
[2020-02-25] MEDS: ACETAMINOPHEN 325 MG TABLET PO PRN (00:42)
--- NOTE | 2020-02-25 06:14 | NUR ---
RN NOTES PM SHIFT ALERT AND ORIENTED X4, 4LPM VIA NC, INTERMITTENT COUGHING, GENERALIZED WEAKNESS, SOB ON EXERTION, COVID (-), ASSISTED TO TOILET, STOOL COLLECTED FOR OB, ROCEPHIN Q24 HOURS, BUN/CR ELEVATED, RENAL FAILURE, WILL NEED HD SOON, DR. BRUNO RAE WILL PUT HD CATH, BIOPSY NEXT WEEK, MONITOR H/H, PRBC 1 UNIT + EPOGEN GIVEN 02/24/20, TRANSFUSE TO KEEP HGB > 7.0.
--- NOTE | 2020-02-25 06:40 | NUR ---
RN NOTES URINE SAMPLE COLLECTED
[2020-02-25 07:16] LABS: BASOPHILS # (AUTO) 0.1 /CMM (0.0-0.2); BASOPHILS % (AUTO) 0.6 % (0.0-2.0); EOSINOPHILS % (AUTO) 3.6 % (0.0-6.0); HEMATOCRIT 25 % (33-45); HEMOGLOBIN 8.5 g/dL (11.5-14.8); LYMPHOCYTES % (AUTO) 9.4 % (20.0-44.0); MEAN CORPUSCULAR HGB CONC 34 g/dl (31.0-36.0); MEAN CORPUSCULAR VOLUME 86 fL (82-100); MONOCYTES # (AUTO) 0.8 /CMM (0.1-1.30); MONOCYTES % (AUTO) 7.3 % (2.0-12.0); NEUTROPHILS # (AUTO) 8.8 /CMM (1.8-8.9); NEUTROPHILS % (AUTO) 79.1 % (43.0-81.0); PLATELET COUNT (AUTO) 267 /CMM (150-450); RED BLOOD CELL COUNT(AUTO) 2.96 MIL/uL (4.0-5.2); WHITE BLOOD COUNT (AUTO) 11.1 K/uL (4.3-11.0)
--- NOTE | 2020-02-25 07:30 | NUR ---
Tele/RN Opening Note Received patient AO X 4, Able to responds all stimuli. Does no c/o pain or discomfort, no adverse reaction observed from ATB therapy. Skin is warm to touch clean/dry, intact IV site. Respiratory even and unlabored with oxygen at 4LPM, notice wet cough occasionally. Keep remain lower position of the bed with locked wheel, call light within reach, will continue to monitor.
--- NOTE | 2020-02-25 07:30 | NUR ---
Tele/RN Opening Note Received patient AO X 4, Able to responds all stimuli. Does no c/o pain or discomfort, no adverse reaction observed from ATB therapy. Skin is warm to touch clean/dry, intact IV site. Respiratory even and unlabored with oxygen at 2LPM. Keep remain lower position of the bed with locked wheel, call light within reach, will continue to monitor. Addendum: 02/25/20 at 1443 by CLOTILDE CAMPOVERDE RN Error
[2020-02-25] MEDS: AMLODIPINE BESYLATE 5 MG TABLET PO SCH (08:14)
[2020-02-25] MEDS: GABAPENTIN 300 MG CAPSULE PO SCH ×2 (08:14→18:05)
[2020-02-25] MEDS: SEVELAMER CARBONATE 800 MG TABLET PO SCH ×3 (08:14→18:04)
[2020-02-25] MEDS: NITROGLYCERIN 30 GM TUBE TP SCH ×2 (08:15→21:34)
[2020-02-25 09:00] LABS: CREATININE, URINE 40.4 MG/DL (30.0-125.0)
[2020-02-25 09:20] LABS: APPEARANCE,URINE CLOUDY (CLEAR); BILIRUBIN,URINE NEGATIVE (NEGATIVE); BLOOD, URINE LARGE Ery/uL (NEGATIVE); COLOR,URINE AMBER (YELLOW); KETONES,URINE NEGATIVE (NEGATIVE); LEUKOCYTE ESTERASE ,URINE NEGATIVE (NEGATIVE); NITRITE, URINE NEGATIVE (NEGATIVE); PROTEIN,URINE >=300 mg/dl (NEGATIVE); UGLUCOSE NEGATIVE (NEGATIVE); UROBILINOGEN,URINE 0.2 EU/dL (0.2)
[2020-02-25 09:25] LABS: OCCULT BLOOD STOOL NEGATIVE (NEGATIVE)
[2020-02-25 09:28] LABS: URINE TOTAL PROTEIN 560.4 mg/dL (0-11.9)
[2020-02-25] MEDS: FLUTICASONE/VILANTEROL 1 EACH BLST.W.DEV IH SCH ×2 (09:34→18:04)
[2020-02-25 10:29] LABS: BACTERIA,URINE Few /HPF (None Seen); RBC,URINE 81-100 /HPF (0-2)
[2020-02-25 10:31] LABS: SQUAMOUS EPITHELIAL CELL,UR Rare /HPF (None Seen)
[2020-02-25 13:51] LABS: EOSINOPHIL,URINE Few
--- NOTE | 2020-02-25 14:30 | NUR ---
Patient transferred rm [id number], given report 3W/Marilyn RN include patient has denture upper/lower, hearing aid (left/right) and batteries.
--- NOTE | 2020-02-25 14:35 | NUR ---
RECEIVED PT TRANSFER FROM PETER.PT ALERT AND TRISTANIAN SPEAKING.ON O2 AT 4L/MIN VIA NC.ON TELE SR 90'S.WITH SACRAL REDNESS AND WITH GEN WEAKNESS.PLACED BEDSIDE COMMODE WITH ASSIST WHEN VOIDING OR MAKE BM.FOR HD TODAY AWAITING FOR BRUNO,DNP TO PLACE THE HD CATH.FOR H/H MONITORING
[2020-02-25] MEDS: AZITHROMYCIN 500 MG in IV D5W 250 ML IV SCH (15:10)
--- NOTE | 2020-02-25 16:30 | NUR ---
SHAUN CARR PLACED RT FEMORAL HD CATH WITH NO COMPLICATIONS OR BLEEDING ON THE SITE.NOTIFIED ESTIVEN MCKAY RN.
[2020-02-25] MEDS: CEFTRIAXONE 1 G in IV D5W 50 ML IV SCH (17:55)
[2020-02-25] MEDS: MONTELUKAST SODIUM (10MG) 10 MG TABLET PO SCH (18:04)
--- NOTE | 2020-02-25 19:05 | NUR ---
HD RNJAKI ARRIVED AND STARTED DOING THE HD PROCEDURE.
--- NOTE | 2020-02-25 19:52 | NUR ---
MS RN PT IN BED A/O X 3 HD ONGOING. ITALIAN SPEAKING, NO S/S OF DISTRESS, STABLE. SAFETY MEASURES AT ALL TIMES. WILL CONT TO MONITOR,
[2020-02-26] VITALS: BP 139/50
[2020-02-26 04:00] VITALS: BP 135/57
--- NOTE | 2020-02-26 05:54 | NUR ---
RECLAMATION ENGINEER PT SLEPT WELL, NO C/O OF PAIN, S/P HD. R FEMORAL HD IN PLACE. STABLE, NO SHORTNESS OF BREATH, NEEDS ATTENDED AND ANTICIPATED, KEPT CLEAN, DRY AND COMFORTABLE.NO ACTIVE BLEEDING. ON 3LPM VIA NC 02 SAT 98%. ON CARDIAC MONITORING ST 103 HR IN TELE MONITOR. SAFETY MEASURES IN PLACE WILL ENDORSE NEXT SHIFT POC.
--- NOTE | 2020-02-26 07:20 | NUR ---
rn opening notes Patient received on room air, no sob noted, a/o x4 and speaks qatari. cardiac diet with L hand 24 with R femoral HD, cath replaced 02/24 by Shaheen. Patient shows no s/s of pain at this time. Bed at the lowest setting, call light within reach, side rails up x2.
[2020-02-26 08:00] VITALS: BP 163/63
[2020-02-26] MEDS: SEVELAMER CARBONATE 800 MG TABLET PO SCH ×3 (08:12→17:05)
[2020-02-26] MEDS: GABAPENTIN 300 MG CAPSULE PO SCH ×2 (08:12→16:42)
[2020-02-26] MEDS: AMLODIPINE BESYLATE 5 MG TABLET PO SCH (08:12)
[2020-02-26] MEDS: NITROGLYCERIN 30 GM TUBE TP SCH ×2 (08:14→20:51)
[2020-02-26] MEDS: FLUTICASONE/VILANTEROL 1 EACH BLST.W.DEV IH SCH ×2 (08:18→16:42)
--- NOTE | 2020-02-26 10:46 | NUR ---
rn notes 1500 mL HD taken out
[2020-02-26] MEDS: AZITHROMYCIN 500 MG in IV D5W 250 ML IV SCH (15:30)
[2020-02-26 16:00] VITALS: BP 142/64
[2020-02-26] MEDS: CEFTRIAXONE 1 G in IV D5W 50 ML IV SCH (16:42)
[2020-02-26] MEDS: MONTELUKAST SODIUM (10MG) 10 MG TABLET PO SCH (17:05)
--- NOTE | 2020-02-26 17:24 | NUR ---
rn closing notes patient remains on room air, no sob noted, patient denies pain at this time. L hand and R wrist present and patent at this time. R femoral HD cath placed by femi kathleen 02/24. HD Done today with 1.5 L taken out. Bed at the lowest setting, call light within reach, side rails up x2. Will give report to NOC RN for [place] bedside.
--- NOTE | 2020-02-26 19:15 | NUR ---
RN PM OPENING NOTES REPORT RECIEVED FROM JEFFERY SAENZ. PATIENT RECIEVED ON 3LNC. PATIENT DENIES SOB. PATIENT A/O X4 KYRGYZ SPEAKING ONLY. IV TO LEFT HAND 24 CIPRIANO AND RIGHT WRIST 20 GUAGE FLUSHED AND PATENT WITH NO S/S OF INFILTRATION. PATIENT HAS R FEMORAL HD CATH WITH DRESSING CDI. BED DOWN LOCKED SRX3 CALL LIGHT IN REACH BED ALARM ACTIVE. WILL CONT TO MONITOR.
[2020-02-26 20:00] VITALS: BP 163/65
--- NOTE | 2020-02-27 05:48 | NUR ---
RN PM CLOSING NOTES PATIENT ON 3LNC NO SOB OBSERVED. PATIENT SEEN WITH EYES CLOSED WITH EQUAL CHEST RISE. BED AT THE LOWEST SETTING. CALL LIGHT IN REACH. SIDE RAILS X2 BED ALARM ACTIVE.
[2020-02-27 06:33] LABS: BASOPHILS # (AUTO) 0.1 /CMM (0.0-0.2); BASOPHILS % (AUTO) 0.7 % (0.0-2.0); HEMATOCRIT 24 % (33-45); LYMPHOCYTES # (AUTO) 1.3 /CMM (0.8-4.8); LYMPHOCYTES % (AUTO) 12.8 % (20.0-44.0); MEAN CORPUSCULAR HGB CONC 33 g/dl (31.0-36.0); MEAN CORPUSCULAR VOLUME 87 fL (82-100); MONOCYTES # (AUTO) 1.2 /CMM (0.1-1.30); MONOCYTES % (AUTO) 11.3 % (2.0-12.0); NEUTROPHILS # (AUTO) 7.5 /CMM (1.8-8.9); NEUTROPHILS % (AUTO) 71.2 % (43.0-81.0); PLATELET COUNT (AUTO) 236 /CMM (150-450); RED BLOOD CELL COUNT(AUTO) 2.76 MIL/uL (4.0-5.2); WHITE BLOOD COUNT (AUTO) 10.5 K/uL (4.3-11.0)
[2020-02-27 06:39] LABS: ALANINE AMINOTRANSFERASE 19 U/L (12-78); ALBUMIN 1.8 g/dL (3.4-5.0); ALKALINE PHOSPHATASE 89 U/L (46-116); ASPARTATE AMINOTRANSFERASE 18 U/L (15-37); BILIRUBIN,TOTAL 0.3 mg/dL (0.2-1.0); CALCIUM, SERUM 8.7 mg/dL (8.5-10.1); CARBON DIOXIDE 31 mmol/L (21-32); CHLORIDE 100 mmol/L (98-107); GLUCOSE 94 mg/dL (74-106); MAGNESIUM 2.3 mg/dL (1.8-2.4); PHOSPHORUS 4.5 mg/dL (2.5-4.9); POTASSIUM 3.8 mmol/L (3.5-5.1); SODIUM SERUM 137 mmol/L (136-145); TOTAL PROTEIN, SERUM 6.2 g/dL (6.4-8.2); UREA NITROGEN, BLOOD 21 mg/dL (7-18)
--- NOTE | 2020-02-27 07:22 | NUR ---
MS RN OPENING NOTES RECEIVED PATIENT IN BED, ASLEEP. PATIENT ON OXYGEN THERAPY AT 3 LPM VIA NASAL CANNULA. BREATHING EVEN AND UNLABORED; NO SOB NOTED AT THIS TIME. NO SIGNS OF PAIN SUCH FACIAL GRIMACING OR MOANING. PT HAS AN IV ACCESS ON L HAND GAUGE # 24 AND R WRIST GAUGE # 20. R FEMORAL HO CATH PRESENT AND INTACT; BRUITS PRESENT. SAFETY PRECAUTIONS IN PLACE; BED IN LOW POSITION AND LOCKED, RAILS UP X2, CALL LIGHT WITHIN REACH. WILL CONTINUE TO MONITOR PATIENT.
[2020-02-27 08:00] VITALS: BP 141/62
[2020-02-27] MEDS: GABAPENTIN 300 MG CAPSULE PO SCH ×2 (08:06→16:38)
[2020-02-27] MEDS: SEVELAMER CARBONATE 800 MG TABLET PO SCH ×3 (08:06→18:05)
[2020-02-27] MEDS: AMLODIPINE BESYLATE 5 MG TABLET PO SCH (08:07)
[2020-02-27] MEDS: NITROGLYCERIN 30 GM TUBE TP SCH ×2 (08:07→21:00)
[2020-02-27] MEDS: FLUTICASONE/VILANTEROL 1 EACH BLST.W.DEV IH SCH ×2 (09:42→16:38)
[2020-02-27] MEDS: ALBUTEROL HALF STRENGTH 1.25 MG/3 ML VIAL.NEB NEB SCH ×2 (14:00→19:26)
[2020-02-27 16:00] VITALS: BP 138/55
--- NOTE | 2020-02-27 16:32 | NUR ---
MS RN NOTES PER PHARMACY AZITHROMAX SCHEDULED FOR 1600 SHOULD BE D/C BY THE DOCTOR AND IS NOT TO BE ADMINISTERED.
[2020-02-27] MEDS: MONTELUKAST SODIUM (10MG) 10 MG TABLET PO SCH (18:05)
--- NOTE | 2020-02-27 18:55 | NUR ---
MS RN CLOSING NOTES PATIENT IN CHAIR, DOSING IN AND OUT, A/O X3. PATIENT REMOVED HER OXYGEN AND IS ON ROOM AIR NOW, BREATHING EVENLY W/O S/S OF SOB. NO SIGNS OF PAIN SUCH FACIAL GRIMACING OR MOANING. PT HAS AN IV ACCESS ON L HAND GAUGE # 24 AND R WRIST GAUGE # 20. R FEMORAL HO CATH PRESENT AND INTACT; BRUITS PRESENT. PATIENT DIDN'T HAVE MUCH APPETITE TODAY. ALL NEEDS ATTENDED THROUGHOUT THE DAY. SAFETY PRECAUTIONS IN PLACE; BED IN LOW POSITION AND LOCKED, RAILS UP X2, CALL LIGHT WITHIN REACH. WILL ENDORSE TO DATA INTEGRATION ANALYST NURSE.
--- NOTE | 2020-02-27 19:17 | NUR ---
MS RN: RECEIVED PATIENT Patient in bed, awake. Appears comfortable, Oxygen at 3L NC, denies SOB. NPO MN, plan for Biopsy Renal Bilateral under US tomorrow per RN report. Fall precaution maintained.
[2020-02-27 20:01] VITALS: BP 163/73
[2020-02-27 20:12] VITALS: BP 163/73
--- NOTE | 2020-02-27 23:30 | NUR ---
RT NOTE PT HAS STRONG COUGH AND ABLE TO COUGH UP SECRETIONS. SMALL THICK WHITE/YELLOW SECRETIONS NOTED. LETTY DE LA ROSA NOTIFIED AND IS AWARE. PT CURRENTLY ON 36% NASAL CANNULA WITH SPO2 93%. WILL CONTINUE TO MONITOR.
[2020-02-28] VITALS (7 sets, daily range): BP systolic 140–163; BP diastolic 56–76
[2020-02-28] MEDS: ALBUTEROL HALF STRENGTH 1.25 MG/3 ML VIAL.NEB NEB SCH ×4 (00:56→19:58)
--- NOTE | 2020-02-28 03:21 | NUR ---
RT NOTE NT SUCTIONED PATIENT, MODERATE THICK WHITE YELLOW SECRETIONS NOTED. B/S IMPROVED. RN RJ AWARE. NO DISTRESS NOTED.
--- NOTE | 2020-02-28 06:24 | NUR ---
MS RN: END OF SHIFT REPORT Patient in bed. Coughing out sputum, denies SOB. Neb q6hour, remains on supplemental Oxygen, increased to 4L NC with Oxygen sat. 93%. NPO MN, plan for Bx Renal Chin under US. Patient is aware. Will endorse to Oncoming RN. Fall precaution maintained.
[2020-02-28 06:31] LABS: BASOPHILS # (AUTO) 0.1 /CMM (0.0-0.2); BASOPHILS % (AUTO) 0.9 % (0.0-2.0); EOSINOPHILS % (AUTO) 4.4 % (0.0-6.0); HEMATOCRIT 27 % (33-45); HEMOGLOBIN 8.8 g/dL (11.5-14.8); LYMPHOCYTES % (AUTO) 8.6 % (20.0-44.0); MEAN CORPUSCULAR HGB CONC 33 g/dl (31.0-36.0); MEAN CORPUSCULAR VOLUME 87 fL (82-100); MONOCYTES % (AUTO) 7.9 % (2.0-12.0); NEUTROPHILS # (AUTO) 9.5 /CMM (1.8-8.9); NEUTROPHILS % (AUTO) 78.2 % (43.0-81.0); PLATELET COUNT (AUTO) 230 /CMM (150-450); RED BLOOD CELL COUNT(AUTO) 3.04 MIL/uL (4.0-5.2); WHITE BLOOD COUNT (AUTO) 12.1 K/uL (4.3-11.0)
[2020-02-28 07:19] LABS: ALANINE AMINOTRANSFERASE 21 U/L (12-78); ALBUMIN 2.1 g/dL (3.4-5.0); ALKALINE PHOSPHATASE 97 U/L (46-116); ASPARTATE AMINOTRANSFERASE 22 U/L (15-37); BILIRUBIN,TOTAL 0.4 mg/dL (0.2-1.0); CALCIUM, SERUM 8.5 mg/dL (8.5-10.1); CARBON DIOXIDE 29 mmol/L (21-32); CHLORIDE 95 mmol/L (98-107); CREATININE 5.1 mg/dL (0.6-1.3); GLUCOSE 103 mg/dL (74-106); MAGNESIUM 2.3 mg/dL (1.8-2.4); PHOSPHORUS 4.4 mg/dL (2.5-4.9); POTASSIUM 3.7 mmol/L (3.5-5.1); SODIUM SERUM 130 mmol/L (136-145); TOTAL PROTEIN, SERUM 6.5 g/dL (6.4-8.2); UREA NITROGEN, BLOOD 26 mg/dL (7-18)
--- NOTE | 2020-02-28 08:00 | NUR ---
m/s vulcanizing machine operator: initial assessment received pt in bed awake, a/ox2-3. noted with occ coughing. pt remains npo, pt for renal bx scheduled. awaiting for radiologist. for possible hd tx today. updated pt of plan of care with filipino staff translating. reality orientation provided prn. instructed to call for assistance. will continue to monitor.
[2020-02-28] MEDS: AMLODIPINE BESYLATE 5 MG TABLET PO SCH (09:00)
[2020-02-28] MEDS: SEVELAMER CARBONATE 800 MG TABLET PO SCH ×3 (09:00→17:14)
[2020-02-28] MEDS: NITROGLYCERIN 30 GM TUBE TP SCH ×2 (09:00→21:58)
[2020-02-28] MEDS: GABAPENTIN 300 MG CAPSULE PO SCH ×2 (09:00→15:56)
--- NOTE | 2020-02-28 09:24 | NUR ---
m/s food production supervisor: notes spoke to yohan (hd nurse) and will have hd tx today. held b/p meds; also held other po meds due to renal biopsy order. awaiting for radiologist. pt aware with azeri staff translating. pt sitting up in chair at this time. instructed to call for assistance.
--- NOTE | 2020-02-28 10:20 | NUR ---
m/s exercise physiologist certified: md visit carlos ([facility]) here and informed her pt has been coughing today. seen and examined by carlos gannon ([facility]) at this time.
[2020-02-28] MEDS: FLUTICASONE/VILANTEROL 1 EACH BLST.W.DEV IH SCH ×2 (10:25→15:56)
[2020-02-28] MEDS ORDERED: CEFTRIAXONE 1 G in IV D5W 50 ML IV SCH (11:00)
[2020-02-28] MEDS ORDERED: AZITHROMYCIN 250 MG TABLET PO SCH (11:00)
--- NOTE | 2020-02-28 11:00 | NUR ---
m/s marine oiler: nephro f/u dr. trujillo here and ask md if radiologist is going to do the renal bx, pt still npo. also made aware that pt has occ cough and still on oxygen. dr. trujillo will let me know as stated.
--- NOTE | 2020-02-28 12:03 | NUR ---
PER DR. LAZO PROCEDURE IS ON HOLD
--- NOTE | 2020-02-28 12:10 | NUR ---
m/s tobacco packer: nephro f/u seen and examined by dr. trujilol at this time. dr. trujillo spoke to dr. jesus (radiologist) and plan to do the biopsy tomorrow. okay to feed pt. pt made aware with guyanese staff translating. lunch ordered. instructed to call for assistance.
[2020-02-28] MEDS ORDERED: DIATR MEGLU/DIATRIZOATE SODIUM 120 ML BOTTLE (GASTROGRAPHIN) ONE (13:27)
--- NOTE | 2020-02-28 14:10 | NUR ---
m/s accident examiner: pulmo f/u dr. quintero here and informed us to transfer pt to tele unit to r/o [facility]. cn aware and called nursing gas distribution supervisor for bed. pt made aware.
--- NOTE | 2020-02-28 14:15 | NUR ---
m/s flour inspector: notes received room and bed from jose enrique. called tele 1st and spoke to tisha (jose enrique) and report given for continuity of care.
--- NOTE | 2020-02-28 14:20 | NUR ---
m/s private client advisor: notes moved pt to room 116-1 via bed with all belongings and report given to blanche (rn) for continuity of care.
--- NOTE | 2020-02-28 14:34 | NUR ---
RN NOTE Patient received from Je NORTON, transferred from to R/O [facility]. Patient is A/O x3, showing no signs of acute distress or SOB, saturating 95% on 4L NC. BP 158/62 HR 94 RR 20 T98.1. IV line in the left wrist is clean and intact s/l. Right femoral HD cath noted. Commode at the bedside. Bed is in lowest position, side rails x3 in upright position, hafsa light is within reach and patient is aware of how to call for assistance when needed. Fall, safety and aspiration precautions enforced. Will continue with plan of care.
--- NOTE | 2020-02-28 16:30 | NUR ---
RN NOTE COVID swab sent to lab
[2020-02-28] MEDS: MONTELUKAST SODIUM (10MG) 10 MG TABLET PO SCH (17:14)
--- NOTE | 2020-02-28 18:03 | NUR ---
RN CLOSING NOTE Patient is resting in bed, A/O x3, showing no signs of acute distress or SOB, saturating 95% on 3L NC. IV line in the right wrist is clean and intact s/l. Right femoral HD cath noted. Patient will have HD tonight around 1900. Commode at the bedside. All patient needs met, all due medications given. Patient kept clean and dry throughout shift. Patient is on isolation precautions to R/O COVID. Bed is in lowest position, side rails x3 in upright position, call light is within reach and patient is aware of how to call for assistance when needed. Fall, safety and aspiration precautions enforced. Will endorse to restaurant shift leader.
[2020-02-28] MEDS ORDERED: VANCOMYCIN 1 GM in IV D5W 250ml IV ONE (19:00)
[2020-02-28] MEDS ORDERED: FEE PK DOSING 1 MIN EA MC ONE (19:06)
--- NOTE | 2020-02-28 19:15 | NUR ---
ICU/RN OPENING RECEIVED PATIENT A/O X4 PATIENT SHOWS NO SIGN OF ANY DISTRESS. ON 3L OF 02 SATURATING AT 100% WITH NO SIGN OF ANY SOB. PATIENT ON THE MONITOR SHOWING SR WITH HR AT 86. PATIENT HAS RT WRIST #20G PATENT AND FLUSHING ON S/L. PATIENT HAS A BEDSIDE COMMODE BUT NEEDS ASSISTANCE. ALL SAFETY PRECAUTIONS APPLIED. WILL CONTINUE TO MONITOR PATIENT THROUGHOUT SHIFT.
[2020-02-28] MEDS: HYDROXYCHLOROQUINE 200 MG TABLET PO SCH (19:58)
--- NOTE | 2020-02-28 20:56 | NUR ---
TELE/RN CLOSING PATIENT IN BED CURRENTLY RECEIVING DIALYSIS. NO SIGN OF ANY DISTRESS, RIGHT WRIST #20G RUNNING WITH VANCOMYCIN. ALL SAFETY PRECAUTIONS APPLIED. ENDORSED PATIENT TO MORNING SHIFT NURSE.
[2020-02-28] MEDS: MEROPENEM 500 MG in IV NS 0.9% 50 ML IV SCH (20:59)
--- NOTE | 2020-02-28 21:00 | NUR ---
REVENUE STAMPER NOTES RECEIVED REPORT FROM LETTY CHAN. PATIENT CURRENTLY RECEIVING DIALYSIS. NO DISTRESS NOTED. TELE MONITOR READING SINUS RHYTHM, HEART RATE 79. SAFETY MEASURES IN PLACE. WILL CONTINUE TO MONITOR.
--- NOTE | 2020-02-28 23:35 | NUR ---
RESIDENTIAL ROOFER NOTES DIALYSIS FINISHED. PER DIALYSIS NURSE, CAROLYNE, PATIENT HAD AN OUTPUT OF 1.5 L. VITAL SIGNS - BP: 154/56 HR: 79 SPO2: 98. WILL CONTINUE TO MONITOR.
[2020-02-29] VITALS: BP 151/63
[2020-02-29] MEDS: ALBUTEROL HALF STRENGTH 1.25 MG/3 ML VIAL.NEB NEB SCH ×4 (01:30→19:51)
[2020-02-29 04:00] VITALS: BP 146/49
[2020-02-29 06:21] LABS: BASOPHILS # (AUTO) 0.1 /CMM (0.0-0.2); BASOPHILS % (AUTO) 0.9 % (0.0-2.0); EOSINOPHILS % (AUTO) 5.1 % (0.0-6.0); HEMATOCRIT 28 % (33-45); HEMOGLOBIN 9.2 g/dL (11.5-14.8); LYMPHOCYTES # (AUTO) 1.9 /CMM (0.8-4.8); MEAN CORPUSCULAR HGB CONC 33 g/dl (31.0-36.0); MEAN CORPUSCULAR VOLUME 87 fL (82-100); MONOCYTES # (AUTO) 1.6 /CMM (0.1-1.30); MONOCYTES % (AUTO) 11.1 % (2.0-12.0); NEUTROPHILS # (AUTO) 10.4 /CMM (1.8-8.9); NEUTROPHILS % (AUTO) 69.9 % (43.0-81.0); PLATELET COUNT (AUTO) 264 /CMM (150-450); RED BLOOD CELL COUNT(AUTO) 3.23 MIL/uL (4.0-5.2); WHITE BLOOD COUNT (AUTO) 14.8 K/uL (4.3-11.0)
[2020-02-29 06:41] LABS: ALANINE AMINOTRANSFERASE 23 U/L (12-78); ALBUMIN 2.2 g/dL (3.4-5.0); ALKALINE PHOSPHATASE 98 U/L (46-116); ASPARTATE AMINOTRANSFERASE 26 U/L (15-37); BILIRUBIN,TOTAL 0.4 mg/dL (0.2-1.0); CALCIUM, SERUM 9.3 mg/dL (8.5-10.1); CARBON DIOXIDE 31 mmol/L (21-32); CHLORIDE 99 mmol/L (98-107); CREATININE 3.9 mg/dL (0.6-1.3); GLUCOSE 107 mg/dL (74-106); MAGNESIUM 2.3 mg/dL (1.8-2.4); PHOSPHORUS 3.7 mg/dL (2.5-4.9); POTASSIUM 3.6 mmol/L (3.5-5.1); SODIUM SERUM 136 mmol/L (136-145); TOTAL PROTEIN, SERUM 6.6 g/dL (6.4-8.2); UREA NITROGEN, BLOOD 16 mg/dL (7-18)
--- NOTE | 2020-02-29 06:43 | NUR ---
NOODLE MAKER CLOSING NOTES PATIENT SLEEPING IN BED COMFORTABLY. A/OX3. ON 3L NC. NO S/S OF ACUTE RESPIRATORY DISTRESS OR PAIN NOTED. TELE MONITOR READING SINUS RHYTHM, HEART RATE 95. IV PRESENT ON RIGHT WRIST, SIZE 20, INTACT & PATENT WITH NS RUNNING TKO. PATIENT CURRENTLY NPO. SAFETY MEASURES IN PLACE. BED LOCKED, ALARM ON, SIDE RAILS X2, CALL LIGHT WITHIN REACH. WILL ENDORSE TO DAY SHIFT NURSE PLAN OF CARE.
--- NOTE | 2020-02-29 07:10 | NUR ---
0710 DR MARTINEZ IN THE UNIT AND CANCELLED RENAL BIOPSY DUE TO PENDING COVID19 RESULT.
--- NOTE | 2020-02-29 07:19 | NUR ---
MISDRAW HAND CLOSING NOTES PATIENT SLEEPING IN BED COMFORTABLY. A/OX3. ON 3L NC. NO S/S OF ACUTE RESPIRATORY DISTRESS OR PAIN NOTED. TELE MONITOR READING SINUS RHYTHM, HEART RATE 88. IV PRESENT ON RIGHT WRIST, SIZE 20, INTACT & PATENT WITH NS RUNNING TKO. SAFETY MEASURES IN PLACE. BED LOCKED, ALARM ON, SIDE RAILS X2, CALL LIGHT WITHIN REACH. WILL CONTINUE TO MONITOR. Addendum: 02/29/20 at 0724 by SAMANTHA BENSON RN ERROR
--- NOTE | 2020-02-29 07:24 | NUR ---
TELE/RN OPENING NOTES PATIENT SLEEPING IN BED COMFORTABLY. A/OX3. ON 3L NC. NO S/S OF ACUTE RESPIRATORY DISTRESS OR PAIN NOTED. TELE MONITOR READING SINUS RHYTHM, HEART RATE 88. IV PRESENT ON RIGHT WRIST, SIZE 20, INTACT & PATENT WITH NS RUNNING TKO. SAFETY MEASURES IN PLACE. BED LOCKED, ALARM ON, SIDE RAILS X2, CALL LIGHT WITHIN REACH. WILL CONTINUE TO MONITOR.
[2020-02-29 08:00] VITALS: BP_SYST 156; BP_DIAS 51; BP_DIAS 57
[2020-02-29] MEDS: SEVELAMER CARBONATE 800 MG TABLET PO SCH ×3 (08:42→17:06)
[2020-02-29] MEDS: GABAPENTIN 300 MG CAPSULE PO SCH ×2 (08:42→17:06)
[2020-02-29] MEDS: HYDROXYCHLOROQUINE 200 MG TABLET PO SCH ×2 (08:43→17:06)
[2020-02-29] MEDS: AMLODIPINE BESYLATE 5 MG TABLET PO SCH (08:43)
[2020-02-29] MEDS: FLUTICASONE/VILANTEROL 1 EACH BLST.W.DEV IH SCH ×2 (09:41→17:11)
[2020-02-29] MEDS: NITROGLYCERIN 30 GM TUBE TP SCH ×2 (09:42→20:50)
[2020-02-29 12:00] VITALS: BP 156/49
[2020-02-29 12:48] LABS: FERRITIN 1347 ng/mL (8-388)
--- NOTE | 2020-02-29 14:04 | NUR ---
BIOPSY ON HOLD PER ORDERING PHYSICIAN
[2020-02-29] MEDS: SOD FERRIC GLUC 125 MG in IV NS 0.9% 100 ML IV SCH (14:25)
[2020-02-29 16:00] VITALS: BP 142/49
[2020-02-29] MEDS ORDERED: VANCOMYCIN 500 MG in IV D5W 100 ML IV ONE (16:00)
[2020-02-29] MEDS: MONTELUKAST SODIUM (10MG) 10 MG TABLET PO SCH (17:06)
--- NOTE | 2020-02-29 18:45 | NUR ---
VENIPUNCTURIST CLOSING NOTES PATIENT SLEEPING IN BED COMFORTABLY. A/OX3. ON 3L NC. NO S/S OF ACUTE RESPIRATORY DISTRESS OR PAIN NOTED. TELE MONITOR READING SINUS RHYTHM WITH PVC HEART RATE 96. IV PRESENT ON RIGHT WRIST, SIZE 20, INTACT & PATENT. SAFETY MEASURES IN PLACE. SEEN AND EXAMINED BY MD WITH ORDERS MADE AND CARRIED OUT. ALL DUE MEDS WAS GIVEN BED IN LOWEST POSITION AND LOCKED, ALARM ON, SIDE RAILS UP X2, CALL LIGHT WITHIN REACH. WILL ENDORSE TO SHIFT NURSE FOR [place]
--- NOTE | 2020-02-29 19:11 | NUR ---
BRAID MAKER: RECEIVED PATIENT Patient in bed, awake. Sinus Rhythm in the Tele monitor. Coughing, denies SOB, 95% on 4L NC. Contact precaution. Fall precaution maintained.
[2020-02-29 20:30] VITALS: BP 153/56
[2020-02-29] MEDS: MEROPENEM 500 MG in IV NS 0.9% 50 ML IV SCH (20:39)
[2020-03-01] VITALS (11 sets, daily range): BP systolic 85–156; BP diastolic 35–67
--- NOTE | 2020-03-01 00:03 | NUR ---
TIME STUDY TECHNICIAN: CP Patient c/o chest pain, pointing her mid chest area, denies nausea no vomiting. Sinus Rhythm in the Tele monitor. BP156/60 HR [address] Shaheen Johnson, order placed.
--- NOTE | 2020-03-01 00:20 | NUR ---
DIRECTOR STYLE: EKG Notified Dr. Shaheen Johnson with EKG result Normal Sinus Rhythm, will cont to monitor patient.
--- NOTE | 2020-03-01 01:06 | NUR ---
PROCUREMENT DIRECTOR: Patient coughing, Oxygen sat decreased to 88%. Per patient her chest hurts when she cough. KAITLYN Ochoa assist with Frisian translation. Informed Dr. Shaheen Johnson, Xray chest to follow when transferred and move to Room 201.
--- NOTE | 2020-03-01 01:25 | NUR ---
SULPHATE TESTER: REPORT Per Patient he Chest pain pointing to her mid chest improved, only pain when she cough, KAITLYN Ochoa assist with Hungarian translation. 93% Oxygen saturation on 4L NC, supplemental oxygen remains. Patient to have Xray chest in MS unit. Report given to Matthew, for continuity of care.
--- NOTE | 2020-03-01 01:30 | NUR ---
RN NOTES Received patient from PETER, transferred to Tele 200-1. Patient on O2 inhalation via NC @ 4LPM, minimal SOB noted. Patient unable to expectorate phlegm properly. Patient denies pain at this time. On tele monitor with NSR noted. Kept on bed clean, dry and comfortable. On fall and aspiration precautions. Will continue to monitor accordingly.
[2020-03-01] MEDS: ALBUTEROL HALF STRENGTH 1.25 MG/3 ML VIAL.NEB NEB SCH ×4 (01:52→19:30)
--- NOTE | 2020-03-01 06:24 | NUR ---
RN CLOSING NOTES Patient asleep, easily awaken. On O2 inhalation via NC @ 4LPM, saturating well. Patient denies any discomfort at this time. On tele with NSR noted. All nursing needs attended. Kept on bed clean, dry and comfortable. No new complaints made. Endorsed.
--- NOTE | 2020-03-01 07:24 | NUR ---
rn opening notes patient received on 4L nasal cannula, no sob noted, R femoral HD cath, L wrist 20 present. Bed at the lowest setting, call light within reach, side rails up x2.
[2020-03-01 07:43] LABS: BASOPHILS # (AUTO) 0.1 /CMM (0.0-0.2); BASOPHILS % (AUTO) 0.9 % (0.0-2.0); EOSINOPHILS % (AUTO) 4.8 % (0.0-6.0); HEMATOCRIT 26 % (33-45); HEMOGLOBIN 8.6 g/dL (11.5-14.8); LYMPHOCYTES # (AUTO) 1.2 /CMM (0.8-4.8); LYMPHOCYTES % (AUTO) 10.1 % (20.0-44.0); MEAN CORPUSCULAR HGB CONC 33 g/dl (31.0-36.0); MEAN CORPUSCULAR VOLUME 88 fL (82-100); MONOCYTES # (AUTO) 1.1 /CMM (0.1-1.30); MONOCYTES % (AUTO) 9.8 % (2.0-12.0); NEUTROPHILS # (AUTO) 8.6 /CMM (1.8-8.9); NEUTROPHILS % (AUTO) 74.4 % (43.0-81.0); PLATELET COUNT (AUTO) 217 /CMM (150-450); RED BLOOD CELL COUNT(AUTO) 2.97 MIL/uL (4.0-5.2); WHITE BLOOD COUNT (AUTO) 11.6 K/uL (4.3-11.0)
[2020-03-01 07:54] LABS: CALCIUM, SERUM 9.2 mg/dL (8.5-10.1); CARBON DIOXIDE 30 mmol/L (21-32); CHLORIDE 98 mmol/L (98-107); CREATININE 5.1 mg/dL (0.6-1.3); GLUCOSE 95 mg/dL (74-106); MAGNESIUM 2.5 mg/dL (1.8-2.4); PHOSPHORUS 5.5 mg/dL (2.5-4.9); SODIUM SERUM 135 mmol/L (136-145); UREA NITROGEN, BLOOD 22 mg/dL (7-18)
[2020-03-01] MEDS: HYDROXYCHLOROQUINE 200 MG TABLET PO SCH ×2 (08:48→16:32)
[2020-03-01] MEDS: SEVELAMER CARBONATE 800 MG TABLET PO SCH ×3 (08:48→17:09)
[2020-03-01] MEDS: AMLODIPINE BESYLATE 5 MG TABLET PO SCH (08:49)
[2020-03-01] MEDS: GABAPENTIN 300 MG CAPSULE PO SCH ×2 (08:49→16:33)
[2020-03-01] MEDS: NITROGLYCERIN 30 GM TUBE TP SCH ×2 (08:51→21:00)
[2020-03-01] MEDS: FLUTICASONE/VILANTEROL 1 EACH BLST.W.DEV IH SCH ×2 (08:51→16:33)
[2020-03-01 09:37] LABS: BAND % (MANUAL) 2 % (0.0-5.0); EOSINOPHILS % (MANUAL) 7 % (0-4); LYMPHOCYTES % (MANUAL) 11 % (16-48); MONOCYTES % (MANUAL) 6 % (0-11.0); MYELOCYTES % 2 % (0-0); NEUTROPHILS % (MANUAL) 72 (42-76)
[2020-03-01] MEDS: SOD FERRIC GLUC 125 MG in IV NS 0.9% 100 ML IV SCH (14:42)
[2020-03-01] MEDS: MONTELUKAST SODIUM (10MG) 10 MG TABLET PO SCH (17:09)
--- NOTE | 2020-03-01 18:19 | NUR ---
rn closing notes patient remains on 4L nasal cannula, no sob noted, a/o x2-3 and speaks mainly greek only. R wrist and L wrist present, both 20 gauge. R femoral HD cath present as well. Vanco to be given post HD, 3rd COVID testing pending at this time. Bed at the lowest setting, call light within reach, side rails up x2.
--- NOTE | 2020-03-01 19:15 | NUR ---
RN NOTES Received patient, a/o x3, asleep, easily awaken. On O2 inahalation via NC @ 4LPM, saturating well. On tele monitor with NSR noted. Patient denies discomfort at this time. Kept on bed clean, dry and comfortable. Call light within easy reach. Will continue to monitor accordingly.
--- NOTE | 2020-03-01 19:34 | NUR ---
HHN TREATMENT NO ADMINISTERED PER CLARK 19 PROTOCOL.
--- NOTE | 2020-03-01 20:15 | NUR ---
RN NOTES Paged by Watchup for patient's rhythm into bradycardia. Assessed patient, not responsive to sternal rub, unable to establish for pulse. Call a code, initiated CPR. NET PROGRAMMER at bedside, placed on defibrillator, asystole. RT take over the CPR. ad bedside running the code. Patient was intubated. Pulse noted at 2037. NSR on monitor. 2039 - Patient transferred to ICU as ordered, via hospital bed assisted by ICU nurse and RTs. Report given to LETTY Duarte. 2099 - Family notified, spoke to Betty. All inquiries answered with satisfaction, family appreciative of the information provided.
[2020-03-01] MEDS: MEROPENEM 500 MG in IV NS 0.9% 50 ML IV SCH ×3 (20:22→22:08)
--- NOTE | 2020-03-01 20:50 | NUR ---
Received patient s/p code blue from [facility]. Patient intubated on site during code blue by ER MD. Patient is no responsive even with deep painful stimuli. pupils are unequal with right nonresponsive and left responsive with sluggish response. NGT placed in left nare with positive placement by auscultation by 2 nurses. patient has two ivs in left wrist and right wrist 20g. bed in low lock position with rails up x 2. call light within reach and all safety measures ensured and carried out. will continue to monitor.
--- NOTE | 2020-03-01 21:00 | NUR ---
RT NOTE Rt called to pt room per code blue called overhead. Pt orally intubated via ETT sz #7.5 secured at 22CM at the lipline. Color change noted on CO2 detector. Clear bilateral breath sounds heard auscultation. ROSC achieved. Pt transferred to ICU and placed on [facility] vent settings as charted. Alarms are set and audible. Vent plugged into red outlet. Ambu bag bedside. Will continue to monitor closely. Pending chest Xray results. Abg to taken in 1 hr. Addendum: 03/01/20 at 2137 by LETICIA KHANNA RT Amended: Links added.
[2020-03-01 22:10] LABS: BASOPHILS # (AUTO) 0.1 /CMM (0.0-0.2); BASOPHILS % (AUTO) 0.4 % (0.0-2.0); EOSINOPHILS % (AUTO) 1.4 % (0.0-6.0); HEMATOCRIT 24 % (33-45); HEMOGLOBIN 7.7 g/dL (11.5-14.8); LYMPHOCYTES # (AUTO) 0.8 /CMM (0.8-4.8); LYMPHOCYTES % (AUTO) 4.3 % (20.0-44.0); MEAN CORPUSCULAR HGB CONC 32 g/dl (31.0-36.0); MEAN CORPUSCULAR VOLUME 90 fL (82-100); MONOCYTES # (AUTO) 0.3 /CMM (0.1-1.30); MONOCYTES % (AUTO) 1.6 % (2.0-12.0); NEUTROPHILS # (AUTO) 17.7 /CMM (1.8-8.9); NEUTROPHILS % (AUTO) 92.3 % (43.0-81.0); PLATELET COUNT (AUTO) 193 /CMM (150-450); RED BLOOD CELL COUNT(AUTO) 2.72 MIL/uL (4.0-5.2); WHITE BLOOD COUNT (AUTO) 19.2 K/uL (4.3-11.0)
[2020-03-01 22:25] LABS: ALANINE AMINOTRANSFERASE 168 U/L (12-78); ALBUMIN 1.7 g/dL (3.4-5.0); ALKALINE PHOSPHATASE 90 U/L (46-116); ASPARTATE AMINOTRANSFERASE 256 U/L (15-37); BILIRUBIN,TOTAL 0.3 mg/dL (0.2-1.0); CALCIUM, SERUM 9.5 mg/dL (8.5-10.1); CARBON DIOXIDE 27 mmol/L (21-32); CHLORIDE 97 mmol/L (98-107); CREATININE 5.8 mg/dL (0.6-1.3); GLUCOSE 173 mg/dL (74-106); MAGNESIUM 2.5 mg/dL (1.8-2.4); PHOSPHORUS 7.4 mg/dL (2.5-4.9); SODIUM SERUM 135 mmol/L (136-145); TOTAL PROTEIN, SERUM 5.5 g/dL (6.4-8.2); UREA NITROGEN, BLOOD 25 mg/dL (7-18)
[2020-03-01 22:45] LABS: ABG BASE EXCESS -2.2 mmol/L; ABG OXYGEN SATURATION 98.9 % (92.0-98.5); ABG PCO2 28.9 mmHg (35.0-45.0); ABG PH 7.477 (7.350-7.450); ABG PO2 289.7 mmHg (75.0-100.0); AaDO2 394.4 mmHg; COHb 0.5 % (0.5-1.5); MetHb 0.7 % (0.0-1.5); O2Hb 97.7 % (94.0-97.0); SITE, ABG Right Radial; VENT MODE, BG AC 20 500 100% +5
[2020-03-01] MEDS ORDERED: NOREPINEPHRINE 32 MG in IV NS 0.9% 218 ML IV PRN (23:30)
[2020-03-02] VITALS (40 sets, daily range): BP systolic 127–150; BP diastolic 46–60
[2020-03-02] MEDS: ALBUTEROL HALF STRENGTH 1.25 MG/3 ML VIAL.NEB NEB SCH ×4 (01:30→19:30)
[2020-03-02 01:33] LABS: ABG BASE EXCESS 1.3 mmol/L; ABG OXYGEN SATURATION 90.7 % (92.0-98.5); ABG PCO2 46.5 mmHg (35.0-45.0); ABG PH 7.378 (7.350-7.450); ABG PO2 62.1 mmHg (75.0-100.0); AaDO2 169.6 mmHg; COHb 0.4 % (0.5-1.5); MetHb 0.8 % (0.0-1.5); O2Hb 89.6 % (94.0-97.0); SITE, ABG Left Radial; VENT MODE, BG AC 16 400 40% +0
--- NOTE | 2020-03-02 01:37 | NUR ---
ETT TUBE ADJUSTMENT, ORIGINALLY MARKED AT 23CM LIPLINE, ORDERS FROM SHAUN NOVA TO RETRACT 3 CM, NEW LIP LINE PLACE 20 CM LIP LINE AWAITING NEW X RAY RESULTS TO CONFIRM NEW PLACEMENT. PT SETTING ALSO ADJUSTED TO 16R 400VT 40% 02 +0 PEEP. PENDING NEW ABG. Addendum: 03/02/20 at 0141 by GILES TY RT Amended: Links added.
[2020-03-02 04:39] LABS: BASOPHILS # (AUTO) 0.1 /CMM (0.0-0.2); BASOPHILS % (AUTO) 0.3 % (0.0-2.0); EOSINOPHILS % (AUTO) 0.2 % (0.0-6.0); HEMATOCRIT 23 % (33-45); HEMOGLOBIN 7.5 g/dL (11.5-14.8); LYMPHOCYTES # (AUTO) 0.8 /CMM (0.8-4.8); LYMPHOCYTES % (AUTO) 4.7 % (20.0-44.0); MEAN CORPUSCULAR HGB CONC 34 g/dl (31.0-36.0); MEAN CORPUSCULAR VOLUME 87 fL (82-100); MONOCYTES # (AUTO) 0.8 /CMM (0.1-1.30); MONOCYTES % (AUTO) 4.9 % (2.0-12.0); NEUTROPHILS # (AUTO) 14.4 /CMM (1.8-8.9); NEUTROPHILS % (AUTO) 89.9 % (43.0-81.0); PLATELET COUNT (AUTO) 200 /CMM (150-450); RED BLOOD CELL COUNT(AUTO) 2.59 MIL/uL (4.0-5.2)
[2020-03-02 04:56] LABS: CALCIUM, SERUM 9.2 mg/dL (8.5-10.1); CARBON DIOXIDE 30 mmol/L (21-32); CHLORIDE 98 mmol/L (98-107); CREATININE 5.8 mg/dL (0.6-1.3); GLUCOSE 119 mg/dL (74-106); MAGNESIUM 2.3 mg/dL (1.8-2.4); PHOSPHORUS 4.6 mg/dL (2.5-4.9); POTASSIUM 4.2 mmol/L (3.5-5.1); SODIUM SERUM 134 mmol/L (136-145); UREA NITROGEN, BLOOD 28 mg/dL (7-18)
--- NOTE | 2020-03-02 07:35 | NUR ---
SANDER SETTER NOTES PATIENT IN BED A/O X1 WITH LEFT NASOGASTRIC TUBE ON VENT SATURATION.95%. NO RESIDUAL NOTED FROM THE NASOGASTRIC TUBE , AUSCULTATED AND FLUSHED WITH WATER. HAS BILATERAL # 20 PERIPHERAL IV LINE. CALL LIGHT WITHIN REACH BED AT THE LOWEST POSITION LOCKED. WILL CONTINUE TO MONITOR.
[2020-03-02] MEDS ORDERED: VANCOMYCIN HCL 0.75 GM in IV D5W 250 ML IV SCH (08:00)
[2020-03-02] MEDS: SEVELAMER CARBONATE 800 MG TABLET PO SCH ×3 (08:42→18:03)
[2020-03-02] MEDS: GABAPENTIN 300 MG CAPSULE PO SCH ×2 (08:44→18:03)
[2020-03-02] MEDS: AMLODIPINE BESYLATE 5 MG TABLET PO SCH (08:45)
[2020-03-02] MEDS: FLUTICASONE/VILANTEROL 1 EACH BLST.W.DEV IH SCH ×2 (09:00→17:00)
[2020-03-02] MEDS: NITROGLYCERIN 30 GM TUBE TP SCH ×2 (09:32→22:48)
--- NOTE | 2020-03-02 09:32 | NUR ---
MEDICINE AIDE NOTES JORGEO NOHEMI NOT GIVEN PATIENT IS NOT ALERT AND ORIENTATED.
[2020-03-02] MEDS: SOD FERRIC GLUC 125 MG in IV NS 0.9% 100 ML IV SCH (13:59)
--- NOTE | 2020-03-02 15:20 | NUR ---
PETROLEUM ENGINEERING TEACHER NOTES CALLED DIALYSIS NURSE, REJI. HE INFORMED THAT PATIENT WILL HAVE DIALYSIS TODAY. ALSO TALKED TO FRANCISCO AT PHARMACY AND HE REQUESTED TO GIVE VANCO AFTER DIALYSIS. WILL FOLLOW UP WITH VANCO ADMINISTRATION.
--- NOTE | 2020-03-02 17:20 | NUR ---
DATA MANAGEMENT SPECIALIST NOTES DIALYSIS NURSE AT BEDSIDE.
--- NOTE | 2020-03-02 17:25 | NUR ---
SKETCH LINER NOTES ELIPITA NOT ADMINISTRATED PATIENT IS NOT ALERT.
--- NOTE | 2020-03-02 17:42 | NUR ---
MACHINE INSPECTOR NOTES GABAPENTIN , MONTELUKAST, SEVELAMER NOT ADMINISTRATED. MEDICATIONS HELD DUE TO DIALYSIS AT THIS TIME WILL BE ADMINISTRATED AFTER DIALYSIS.
[2020-03-02] MEDS: MONTELUKAST SODIUM (10MG) 10 MG TABLET PO SCH (18:03)
--- NOTE | 2020-03-02 19:28 | NUR ---
SPECIFICATIONS WRITER NOTES DIALYSIS NURSE AT THE BED SIDE. ALL NEEDS ATTENDED PATIENT IS COMFORTABLE NO SOB OR DISCOMFORT NOTED AT THIS TIME. CALL LIGHT WITHIN REACH BED AT THE LOWEST POSITION LOCKED. ENDORSED TO BILINGUAL HR GENERALIST NURSE AND INFORMED FOR ADMINISTRATION OF VANCO AFTER DIALYSIS.
[2020-03-02] MEDS: MEROPENEM 500 MG in IV NS 0.9% 50 ML IV SCH (20:30)
[2020-03-02] MEDS ORDERED: EPINEPHRINE (1:10,000) SYRINGE 1 MG/10 ML DISP.SYRIN IVP ONE (20:47)
[2020-03-02] MEDS ORDERED: SODIUM BICARBONATE SYR 50 MEQ/50 ML DISP.SYRIN IV ONE (20:47)
[2020-03-02] MEDS ORDERED: CALCIUM CHLORIDE 1,000 MG/10 ML DISP.SYRIN IV ONE (20:47)
[2020-03-02] MEDS: VANCOMYCIN POST DIALYSIS 500MG IV PRN ×2 (22:00)
[2020-03-03] VITALS (26 sets, daily range): BP systolic 137–162; BP diastolic 51–65
[2020-03-03] MEDS: ALBUTEROL HALF STRENGTH 1.25 MG/3 ML VIAL.NEB NEB SCH ×4 (01:30→19:30)
--- NOTE | 2020-03-03 07:00 | NUR ---
DANCE HALL HOST/HOSTESS OPENING PATIENT ON VENT WITH SETTING PRESCRIBE BY PULUMU. NO SIGNS OF ACUTE RESPIRATORY DISTRESS AT THIS TIME. PATIENT IS ABLE TO FEEL DEEP PAIN ONLY. PATIENT IS ON SR 80'S . NPO EXCEPT FOR MEDICATION. L GT NARES PATENT AND FLUSHING. R WRIST 20G, L HAND 20 G. PATENT AND INTACT NO SIGNS OF INFILTRATION. BED LOCKED LOWEST POSITION CALL LIGHT WITH IN REACH ALL SAFETY MEASURE IMPLEMENTED PER HOSPITAL POLICY
[2020-03-03 08:32] LABS: ABG BASE EXCESS 2.9 mmol/L; ABG OXYGEN SATURATION 96.8 % (92.0-98.5); ABG PCO2 38.3 mmHg (35.0-45.0); ABG PH 7.462 (7.350-7.450); ABG PO2 99.1 mmHg (75.0-100.0); AaDO2 214.3 mmHg; COHb 0.4 % (0.5-1.5); MetHb 0.2 % (0.0-1.5); O2Hb 96.2 % (94.0-97.0); SITE, ABG Right Radial; VENT MODE, BG AC 18 400 50%
[2020-03-03] MEDS: SEVELAMER CARBONATE 800 MG TABLET PO SCH ×3 (08:55→17:06)
[2020-03-03] MEDS: GABAPENTIN 300 MG CAPSULE PO SCH ×2 (08:55→16:22)
[2020-03-03] MEDS: AMLODIPINE BESYLATE 5 MG TABLET PO SCH (08:55)
[2020-03-03] MEDS: FLUTICASONE/VILANTEROL 1 EACH BLST.W.DEV IH SCH ×2 (08:56→16:16)
[2020-03-03] MEDS: NITROGLYCERIN 30 GM TUBE TP SCH ×2 (08:56→21:42)
--- NOTE | 2020-03-03 08:57 | NUR ---
RN-ICU - PROSPER UNABLE TO GIVEN TO PT
[2020-03-03] MEDS: SOD FERRIC GLUC 125 MG in IV NS 0.9% 100 ML IV SCH (14:22)
[2020-03-03] MEDS: MONTELUKAST SODIUM (10MG) 10 MG TABLET PO SCH (17:06)
--- NOTE | 2020-03-03 19:00 | NUR ---
CLOCK MAKER- CLOSING NO CHANGE IN CONDITION AT THIS TIME, PATIENT REMAINS STABLE, NO ACUTE RESPIRATORY DISTRESS STILL AWAITING FOR RESULTS FOR COVID. PATIENT TURNED Q2H , BED LOCKED LOWEST POSITION CALL LIGHT WITH IN REACH ALL SAFETY PRECAUTIONS IMPLEMENTED PER HOSPITAL POLICY
--- NOTE | 2020-03-03 19:25 | NUR ---
ICU/RN notes Patient received, obtunded, eyes closed, respond to deep painful stimuli. Intubated with prescribed vent settings. Breathing even and unlabored. No SOB. In no acute distress. Sinus rhythm on the monitor. IV sites with no S/S of infection/infiltration. Safety maintained, bed at the lowest locked position. Call light within reach. isolation precautions maintained. Will continue to monitor as per plan of care.
[2020-03-03] MEDS: MEROPENEM 500 MG in IV NS 0.9% 50 ML IV SCH (20:49)
[2020-03-04] VITALS (39 sets, daily range): BP systolic 106–144; BP diastolic 43–55
[2020-03-04] MEDS: ALBUTEROL HALF STRENGTH 1.25 MG/3 ML VIAL.NEB NEB SCH ×4 (01:30→19:30)
[2020-03-04 05:19] LABS: CALCIUM, SERUM 8.5 mg/dL (8.5-10.1); CARBON DIOXIDE 28 mmol/L (21-32); CHLORIDE 105 mmol/L (98-107); CREATININE 5.2 mg/dL (0.6-1.3); GLUCOSE 89 mg/dL (74-106); POTASSIUM 3.6 mmol/L (3.5-5.1); SODIUM SERUM 140 mmol/L (136-145); UREA NITROGEN, BLOOD 31 mg/dL (7-18)
--- NOTE | 2020-03-04 07:18 | NUR ---
Remained in stable condition, no significant change in condition overnight, breathing even and unlabored. No SOB. Remained Obtunded, A/O x0, eyes closed. kept clean and dry. needs attendant. Safety maintained. Endorse to AM shift nurse for [place]
--- NOTE | 2020-03-04 08:22 | NUR ---
ICU/RN INITIAL NOTES,AM RECEIVED WRITTEN REPORT FROM FRICTION SAW OPERATOR RN. PT INTUBATED 7.5 AND 19CM AT THE LIP. PT ON VENT SETTINGS ORDERED BY MD, NO ACUTE DISTRESS NOTED AT THIS TIME. PT REACTS TO DEEP PAINFUL STIMULI, DOES NOT FOLLOW COMMANDS. SINUS ON TELE. ON DIAPER. PT CURRENTLY NPO. ALL NEEDS WILL BE ATTENDED TO, SAFETY MEASURES TAKEN, BED IN LOW POSITION, SIDE RAILS UP, CALL LIGHT WITHIN REACH. ALL NEEDS WILL BE ATTENDED TO.
[2020-03-04 08:42] LABS: ABG BASE EXCESS 2.1 mmol/L; ABG OXYGEN SATURATION 96.4 % (92.0-98.5); ABG PCO2 41.9 mmHg (35.0-45.0); ABG PH 7.423 (7.350-7.450); ABG PO2 91.6 mmHg (75.0-100.0); AaDO2 217.8 mmHg; COHb 1.2 % (0.5-1.5); MetHb 0.4 % (0.0-1.5); O2Hb 94.9 % (94.0-97.0); SITE, ABG Right Radial; VENT MODE, BG AC 18 400 50
[2020-03-04] MEDS: SEVELAMER CARBONATE 800 MG TABLET PO SCH ×3 (08:42→17:56)
[2020-03-04] MEDS: FLUTICASONE/VILANTEROL 1 EACH BLST.W.DEV IH SCH ×2 (08:42→16:47)
[2020-03-04] MEDS: GABAPENTIN 300 MG CAPSULE PO SCH ×2 (08:43→16:47)
[2020-03-04] MEDS: AMLODIPINE BESYLATE 5 MG TABLET PO SCH (08:43)
[2020-03-04] MEDS: NITROGLYCERIN 30 GM TUBE TP SCH ×2 (08:44→20:41)
[2020-03-04 09:57] LABS: BASOPHILS # (AUTO) 0.1 /CMM (0.0-0.2); BASOPHILS % (AUTO) 0.4 % (0.0-2.0); EOSINOPHILS % (AUTO) 2.9 % (0.0-6.0); HEMATOCRIT 25 % (33-45); HEMOGLOBIN 8.3 g/dL (11.5-14.8); LYMPHOCYTES % (AUTO) 7.9 % (20.0-44.0); MEAN CORPUSCULAR HGB CONC 33 g/dl (31.0-36.0); MEAN CORPUSCULAR VOLUME 89 fL (82-100); MONOCYTES # (AUTO) 0.8 /CMM (0.1-1.30); MONOCYTES % (AUTO) 6.4 % (2.0-12.0); NEUTROPHILS % (AUTO) 82.4 % (43.0-81.0); PLATELET COUNT (AUTO) 202 /CMM (150-450); RED BLOOD CELL COUNT(AUTO) 2.86 MIL/uL (4.0-5.2); WHITE BLOOD COUNT (AUTO) 12.2 K/uL (4.3-11.0)
[2020-03-04 10:01] LABS: ALBUMIN 1.8 g/dL (3.4-5.0); BILIRUBIN,DIRECT 0.1 mg/dL (0.0-0.2); BILIRUBIN,TOTAL 0.3 mg/dL (0.2-1.0); TOTAL PROTEIN, SERUM 5.8 g/dL (6.4-8.2)
--- NOTE | 2020-03-04 10:57 | NUR ---
RENAL BIOPSY PROCEDURE ON HOLD. PER ICU CHARGE NURSE LETICIA, IT CAN WAIT UNTIL TOMORROW DUE TO PENDING COVID RESULT AND SICK INDEX EDITOR.
[2020-03-04] MEDS: SOD FERRIC GLUC 125 MG in IV NS 0.9% 100 ML IV SCH (13:52)
--- NOTE | 2020-03-04 16:10 | NUR ---
ICU/RN: RIGHT UPPER ARM MIDLINE INSERTED. NO S/S OF BLEEDING NOTED. WILL MONITOR
--- NOTE | 2020-03-04 17:45 | NUR ---
ICU/RN: HD STARTED. VSS. WILL CONTINUE TO MONITOR
[2020-03-04] MEDS: MONTELUKAST SODIUM (10MG) 10 MG TABLET PO SCH (17:56)
[2020-03-04] MEDS ORDERED: ALBUMIN 25% 25 GM in PREMIX 1 EA IV PRN ×4 (19:00)
--- NOTE | 2020-03-04 19:23 | NUR ---
ICU/RN: ENDING NOTES, AM REPORT ENDORSED TO NIGHT NURSE. PT INTUBATED ON VENT SETTINGS ORDERED. NO DISTRESS. SINUS ON TELE. ALL NEEDS ATTENDED TO, HD ONGOING AT THIS TIME. ENDORSED TO NIGHT NURSE TO ADMIN POST HD ANTIBIOTICS. PT TURNED AND REPOSITIONED, BED BATH GIVEN, LINENS CHANGED, SAFETY MEASURES TAKEN. WILL CONTINUE CARE. NEURO CONSULT PENDING. WILL FOLLOW UP IN AM.
--- NOTE | 2020-03-04 19:30 | NUR ---
INFORMATION SCIENTIST INITIAL SHIFT NOTES RECEIVED REPORT FROM DAY SHIFT NURSE. RECEIVED PATIENT ORALLY INTUBATED, ETT 7.5, 19CM AT [facility] LINEON MECHANICAL VENT, SETTINGS PRESCRIBED, NO ACUTE DISTRESS NOTED AT THIS TIME. PT WITHDRAWS TO PAINFUL STIMULI, DOES NOT FOLLOW COMMANDS. SINUS RHYTHM ON TELEMETRY MONITORING. PT CURRENTLY NPO, RIGHT NARE NGT CLAMPED. ALL NEEDS WILL BE ATTENDED TO, SAFETY MEASURES TAKEN, BED IN LOW POSITION, SIDE RAILS UP, CALL LIGHT WITHIN REACH. ALL NEEDS WILL BE ATTENDED TO.
--- NOTE | 2020-03-04 20:25 | NUR ---
RECEIVED PT INTUBATED ON VENT. 7.5 ETT @20CM LIP LINE. NO RESP DISTRESS. PT TOLERATING VENT SETTINGS. SX'D FOR MOD AMT OF THICK WHITE SECRETIONS. ETT SECURED, CUFF CHECKED. VENT ALARMS SET AND AUDIBLE. CONTINUE [facility] VENT SUPPORT. Addendum: 03/04/20 at 2026 by GÉNESIS CHAPMAN RT Amended: Links added.
[2020-03-04] MEDS: MEROPENEM 500 MG in IV NS 0.9% 50 ML IV SCH (20:29)
[2020-03-04] MEDS: VANCOMYCIN POST DIALYSIS 500MG IV PRN ×2 (21:45)
--- NOTE | 2020-03-04 22:00 | NUR ---
TOWBOAT OPERATOR NOTES HD COMPLETE, TOLERATED WELL, 1 LITER REMOVED
[2020-03-05] VITALS (24 sets, daily range): BP systolic 90–153; BP diastolic 36–57
[2020-03-05] MEDS: ALBUTEROL HALF STRENGTH 1.25 MG/3 ML VIAL.NEB NEB SCH ×4 (01:30→18:01)
--- NOTE | 2020-03-05 04:00 | NUR ---
IT INFRASTRUCTURE MANAGER NOTES BED BATH RENDERED, TOLERATED WELL. CONTINUE ON MECHANICAL VENTILATION, NO SIGNS AND SYMPTOMS OF AGITATION NOTED
[2020-03-05 05:06] LABS: BASOPHILS % (AUTO) 0.5 % (0.0-2.0); EOSINOPHILS % (AUTO) 3.2 % (0.0-6.0); HEMATOCRIT 22 % (33-45); HEMOGLOBIN 7.3 g/dL (11.5-14.8); LYMPHOCYTES % (AUTO) 10.5 % (20.0-44.0); MEAN CORPUSCULAR HGB CONC 34 g/dl (31.0-36.0); MEAN CORPUSCULAR VOLUME 89 fL (82-100); MONOCYTES # (AUTO) 0.6 /CMM (0.1-1.30); MONOCYTES % (AUTO) 6.1 % (2.0-12.0); NEUTROPHILS # (AUTO) 7.6 /CMM (1.8-8.9); NEUTROPHILS % (AUTO) 79.7 % (43.0-81.0); PLATELET COUNT (AUTO) 171 /CMM (150-450); RED BLOOD CELL COUNT(AUTO) 2.46 MIL/uL (4.0-5.2); WHITE BLOOD COUNT (AUTO) 9.5 K/uL (4.3-11.0)
[2020-03-05 05:10] LABS: CALCIUM, SERUM 7.8 mg/dL (8.5-10.1); CARBON DIOXIDE 30 mmol/L (21-32); CHLORIDE 102 mmol/L (98-107); GLUCOSE 75 mg/dL (74-106); POTASSIUM 3.4 mmol/L (3.5-5.1); SODIUM SERUM 139 mmol/L (136-145); UREA NITROGEN, BLOOD 23 mg/dL (7-18)
--- NOTE | 2020-03-05 07:34 | NUR ---
RT Pt received orally intubated on mechanical ventilation with noted settings. Alarms are set and audible with BVM by bedside. No SOB or respiratory distress noted.
--- NOTE | 2020-03-05 07:34 | NUR ---
RT Pt received orally intubated on mechanical ventilation with noted settings. Alarms are set and audible with BVM by bedside. No SOB or respiratory distress noted. Addendum: 03/05/20 at 1419 by RAY CABRERA RT Amended: Links added.
[2020-03-05] MEDS: SEVELAMER CARBONATE 800 MG TABLET PO SCH ×3 (07:49→18:01)
[2020-03-05] MEDS: GABAPENTIN 300 MG CAPSULE PO SCH (07:49)
[2020-03-05] MEDS: FLUTICASONE/VILANTEROL 1 EACH BLST.W.DEV IH SCH ×2 (07:50→17:00)
[2020-03-05] MEDS: AMLODIPINE BESYLATE 5 MG TABLET PO SCH (07:50)
[2020-03-05] MEDS: NITROGLYCERIN 30 GM TUBE TP SCH ×2 (07:51→20:34)
[2020-03-05] MEDS: MONTELUKAST SODIUM (10MG) 10 MG TABLET PO SCH (18:01)
--- NOTE | 2020-03-05 18:34 | NUR ---
BLACK TOP MACHINE OPERATOR PT CONDITION STILL REMAINS GAURDED, NO DISTRESS DURING SHIFT, PT STILL ON VENT IV ACCESS PATENT REPORT GIVEN TO PM NURSE FOR CONTINUITY OF CARE.
--- NOTE | 2020-03-05 19:30 | NUR ---
MEDIA PROFESSIONAL INITIAL SHIFT NOTES RECEIVED REPORT FROM DAY SHIFT NURSE. RECEIVED PATIENT IN BED, ORALLY INTUBATED, ETT 7.5, 19CM AT THE LIP LINE. ON MECHANICAL VENT, SETTINGS PRESCRIBED, NO ACUTE DISTRESS NOTED AT THIS TIME. PT WITHDRAWS TO PAINFUL STIMULI, DOES NOT FOLLOW COMMANDS. SINUS RHYTHM ON TELEMETRY MONITORING. PT CURRENTLY NPO, RIGHT NARE NGT CLAMPED. ALL NEEDS WILL BE ATTENDED TO, SAFETY MEASURES TAKEN, BED IN LOW POSITION, SIDE RAILS UP, CALL LIGHT WITHIN REACH. ALL NEEDS WILL BE ATTENDED TO, WILL CONTINUE TO CLOSELY MONITOR
[2020-03-05] MEDS: MEROPENEM 500 MG in IV NS 0.9% 50 ML IV SCH (19:52)
[2020-03-06] VITALS (24 sets, daily range): BP systolic 104–157; BP diastolic 39–64
[2020-03-06] MEDS: ALBUTEROL HALF STRENGTH 1.25 MG/3 ML VIAL.NEB NEB SCH ×4 (01:23→19:30)
[2020-03-06 06:35] LABS: BASOPHILS # (AUTO) 0.1 /CMM (0.0-0.2); BASOPHILS % (AUTO) 0.9 % (0.0-2.0); EOSINOPHILS % (AUTO) 3.5 % (0.0-6.0); HEMATOCRIT 22 % (33-45); HEMOGLOBIN 7.4 g/dL (11.5-14.8); LYMPHOCYTES # (AUTO) 1.2 /CMM (0.8-4.8); LYMPHOCYTES % (AUTO) 12.1 % (20.0-44.0); MEAN CORPUSCULAR HGB CONC 33 g/dl (31.0-36.0); MEAN CORPUSCULAR VOLUME 89 fL (82-100); MONOCYTES # (AUTO) 0.8 /CMM (0.1-1.30); MONOCYTES % (AUTO) 7.6 % (2.0-12.0); NEUTROPHILS # (AUTO) 7.8 /CMM (1.8-8.9); NEUTROPHILS % (AUTO) 75.9 % (43.0-81.0); PLATELET COUNT (AUTO) 184 /CMM (150-450); RED BLOOD CELL COUNT(AUTO) 2.52 MIL/uL (4.0-5.2); WHITE BLOOD COUNT (AUTO) 10.3 K/uL (4.3-11.0)
[2020-03-06 06:47] LABS: CALCIUM, SERUM 7.7 mg/dL (8.5-10.1); CARBON DIOXIDE 27 mmol/L (21-32); CHLORIDE 102 mmol/L (98-107); GLUCOSE 74 mg/dL (74-106); POTASSIUM 3.7 mmol/L (3.5-5.1); SODIUM SERUM 140 mmol/L (136-145); UREA NITROGEN, BLOOD 35 mg/dL (7-18)
--- NOTE | 2020-03-06 07:00 | NUR ---
KELLER MACHINE OPERATOR CLOSING NOTES NO ACUTE CHANGES THROUGHOUT THE SHIFT. PATIENT REMAINS ORALLY INTUBATED ON MECHANICAL VENTILATION, TOLERATED WELL THROUGHOUT SHIFT, NO RESPIRATORY DISTRESS NOTED. WILL ENDORSE THE PATIENT TO THE AM SHIFT NURSE FOR CONTINUITY OF CARE
--- NOTE | 2020-03-06 08:00 | NUR ---
ICU RELIEF CHARGE RECEIVED REPORT FROM NIGHT NURSE. PT INTUBATED ETT 7.5/19CM AT THE LIP ON VENT SETTINGS ORDERED BY MD. PT OBTUNDED/COMATOSE. SINUS ON TELE WITH WITH INVERTED T WAVES. PT ANURIC. RIGHT NARE NG TUBE IN PLACE, NPO EXCEPT MEDS AT THIS TIME. RIGHT UPPER ARM MIDLINE IN PLACE, NO S/S OF INFECTION OR INFILTRATION NOTED. COVID PENDING, ONCE RESULTS CLEAR PT IS TO HAVE EEG AND HEAD CT. ALL NEEDS WILL BE ATTENDED TO, SAFETY MEASURES TAKEN, BED IN LOW POSITION, SIDE RAILS UP, CALL LIGHT WITHIN REACH. WILL CONTINUE CARE.
[2020-03-06] MEDS: AMLODIPINE BESYLATE 5 MG TABLET PO SCH (09:00)
[2020-03-06] MEDS: FLUTICASONE/VILANTEROL 1 EACH BLST.W.DEV IH SCH ×2 (09:00→16:16)
[2020-03-06] MEDS: SEVELAMER CARBONATE 800 MG TABLET PO SCH ×3 (09:56→18:38)
[2020-03-06] MEDS: NITROGLYCERIN 30 GM TUBE TP SCH ×2 (09:56→21:13)
[2020-03-06] MEDS ORDERED: FUROSEMIDE 40 MG/4 ML VIAL IV SCH (10:00)
--- NOTE | 2020-03-06 11:00 | NUR ---
ICU/RN: CALLED LAB REGARDING PENDING COVID RESULTS. AFTER MULTIPLE ATTEMPTS A RESULT WAS FINALLY RECEIVED. PT NEGATIVE, RESULTS SENT TO ICU VIA FAX, PLACED IN CHART.
--- NOTE | 2020-03-06 11:15 | NUR ---
ICU/RN: EEG STARTED. PT STABLE. WILL CONTINUE TO MONITOR
--- NOTE | 2020-03-06 16:00 | NUR ---
ICU/RN: HEAD CT DONE. RESULTS RELAYED TO . SPOKE TO DAUGHTER OF PT, UPDATES GIVEN. PT NOW DNR PER DAUGHTER.
[2020-03-06] MEDS: MONTELUKAST SODIUM (10MG) 10 MG TABLET PO SCH (18:38)
--- NOTE | 2020-03-06 19:39 | NUR ---
ICU/RN ENDING NOTES,AM REPORT ENDORSED TO NIGHT NURSE FOR [place]. PT INTUBATED ON VENT SETTINGS ORDERED. PT OBTUNDED/COMATOSE. EEG AND HEAD CT DONE. AWARE AND FAMILY INFORMED OF THE RESULTS. DAUGHTER AND OTHER SIBLINGS THINKING ABOUT COMFORT CARE, WILL CALL IN AM AND INFORM DAY NURSE REGARDING PLAN OF CARE. ALL NEEDS ATTENDED TO, SAFETY MEASURES TAKEN, BED IN LOW POSITION, SIDE RAILS UP, CALL LIGHT WITHIN REACH. WILL CONTINUE CARE.
[2020-03-06] MEDS: MEROPENEM 500 MG in IV NS 0.9% 50 ML IV SCH (21:11)
[2020-03-07] VITALS (24 sets, daily range): BP systolic 110–176; BP diastolic 41–63
[2020-03-07] MEDS: ALBUTEROL HALF STRENGTH 1.25 MG/3 ML VIAL.NEB NEB SCH ×3 (01:30→13:30)
[2020-03-07 04:53] LABS: BASOPHILS # (AUTO) 0.1 /CMM (0.0-0.2); BASOPHILS % (AUTO) 0.8 % (0.0-2.0); EOSINOPHILS % (AUTO) 5.5 % (0.0-6.0); HEMATOCRIT 24 % (33-45); HEMOGLOBIN 7.7 g/dL (11.5-14.8); LYMPHOCYTES # (AUTO) 1.5 /CMM (0.8-4.8); LYMPHOCYTES % (AUTO) 14.2 % (20.0-44.0); MEAN CORPUSCULAR HGB CONC 33 g/dl (31.0-36.0); MEAN CORPUSCULAR VOLUME 90 fL (82-100); MONOCYTES # (AUTO) 0.9 /CMM (0.1-1.30); MONOCYTES % (AUTO) 8.7 % (2.0-12.0); NEUTROPHILS # (AUTO) 7.6 /CMM (1.8-8.9); NEUTROPHILS % (AUTO) 70.8 % (43.0-81.0); PLATELET COUNT (AUTO) 220 /CMM (150-450); RED BLOOD CELL COUNT(AUTO) 2.62 MIL/uL (4.0-5.2); WHITE BLOOD COUNT (AUTO) 10.7 K/uL (4.3-11.0)
[2020-03-07 05:05] LABS: CALCIUM, SERUM 8.3 mg/dL (8.5-10.1); CARBON DIOXIDE 27 mmol/L (21-32); CHLORIDE 103 mmol/L (98-107); CREATININE 6.1 mg/dL (0.6-1.3); GLUCOSE 68 mg/dL (74-106); POTASSIUM 3.8 mmol/L (3.5-5.1); SODIUM SERUM 140 mmol/L (136-145); UREA NITROGEN, BLOOD 44 mg/dL (7-18)
--- NOTE | 2020-03-07 06:15 | NUR ---
CELL TENDER HELPER: NO SIGNIFICANT [place] DURING THE SHIFT. PT REMAINED OBTUNDED, POSITIVE BABINSKI AND GAG REFLEX, WITHDRAWS TO DEEP PAIN STIMULI. VENT SETTINGS ORDERED WT NO ACUTE DISTRESS. SR ON SKEIN WASHER. AFEBRILE. REMAINED ANURIC. RT. NGT IN PLACE AND CLAMPED. REEMA MIDLINE, RT. ANKLE AND RT. FEMORAL HD CATH IN PLACE WT NO S/S OF COMPLICATIONS. BED BATH GIVEN AND TOLERATED FAIRLY. HOB AT 35 DEGREES. BED IN LOWEST POSITION AND LOCKED, SIDE RAILS UP X2, BED BRAKES ON. ALL NEEDS MET. WILL CONTINUE TO MONITOR.
[2020-03-07] MEDS: SEVELAMER CARBONATE 800 MG TABLET PO SCH ×2 (08:00→12:05)
--- NOTE | 2020-03-07 08:00 | NUR ---
ICU/RN PT IS INTUBATED ON THE VENT AC MODE.SAT O2-99%.V/S STABLE,AFEBRILE.COMATOSE.IV -ML -HL.ANURIA.NG TUBE CLAMPED.PT IS DNR CODE STATUS.
[2020-03-07] MEDS: NITROGLYCERIN 30 GM TUBE TP SCH (09:00)
[2020-03-07] MEDS: FLUTICASONE/VILANTEROL 1 EACH BLST.W.DEV IH SCH (09:00)
[2020-03-07] MEDS: AMLODIPINE BESYLATE 5 MG TABLET PO SCH (12:05)
--- NOTE | 2020-03-07 16:00 | NUR ---
ICU/RN .DR HERNANDEZ TALK TO THE FAMILY.PT IS COMFORT CARE, CODE STATUS CHANGED.AND OK FAMILY TO VISIT .ENGINEER BOOSTER AND EXHAUSTER NOTIFIED.
[2020-03-07] MEDS ORDERED: MORPHINE SULFATE INJ 2 MG/ML DISP.SYRIN IV ONE (17:00)
[2020-03-07] MEDS: MORPHINE SULFATE PF DRIP 250 MG in IV D5W 240 ML IV PRN (17:58)
--- NOTE | 2020-03-07 18:00 | NUR ---
ICU/RN PT IS EXTUBATED.PLACED ON 2L N/C.NG TUBE REMOVED.PT IS ON MORPHINE DRIP.OK TRANSFER TO M/S UNIT.
--- NOTE | 2020-03-07 19:30 | NUR ---
TE[employer]ENTER SOLUTION ARCHITECT NOTES RECEIVED PATIENT IN BED, COMATOSE. PATIENT S/P EXTUBATION, ON MORPHINE DRIP @ 5MG/HR, CURRENTLY ON O2 VIA NASAL CANNULA @ 2LPM. PATIENT APPEARS COMFORTABLE, NO VERBAL SIGNS AND SYMPTOMS OF AGITATION OR DISCOMFORT, BREATHING EVEN AND NONLABORED. WILL MONITOR CLOSELY
--- NOTE | 2020-03-07 20:00 | NUR ---
WATER RECLAMATION SYSTEMS OPERATOR NOTES RECEIVED CALL FROM PATIENT'S DAUGHTER KRISTIN. UPDATE GIVEN THAT PATIENT WAS EXTUBATED AND NOW ON MORPHINE DRIP. PER KRISTIN, THE MORTUARY ARRANGEMENTS HAVE ALREADY BEEN MADE, AND FAMILY REQUESTS TO BE NOTIFIED WHEN PATIENT EXPIRES OR IS TRANSFERRED TO ANOTHER UNIT. WILL CONTINUE TO CLOSELY MONITOR
--- NOTE | 2020-03-07 22:23 | NUR ---
NIPPLE THREADER NOTES REPORT CALLED TO NURSE FLYNN FOR CONTINUITY OF CARE. CALLED PATIENT'S DAUGHTER KRISTIN [phone] TO UPDATE REGARDING TRANSFER TO ROOM 329.
[2020-03-08] VITALS: BP 108/42
--- NOTE | 2020-03-08 00:18 | NUR ---
RN NOTES - TRANSFER TO 3W PATIENT TRANSFERRED TO MED/SURG, ROOM 329, ACCOMPANIED WITH CHARGE NURSE. COMFORT MEASURES ONLY. REPORT GIVEN TO NURSE FLYNN FOR CONTINUITY OF CARE. GEE MADE AWARE REGARDING MORTUARY ARRANGEMENTS.
--- NOTE | 2020-03-08 06:27 | NUR ---
MS RN NOTES PT LETHARGIC. ON COMFORT MEASURES ONLY. NOT IN ANY DISTRESS. NO SOB NOTED. NO S/SX OF ANY PAIN OR DISCOMFORT AT THIS TIME. WITH MORPHINE DRIP INFUSING WELL. AM CARE DONE. MONITORED ACCORDINGLY. CALL LIGHT WITHIN REACH. BED IN LOWEST POSITION. SR UP X 3 WITH BED ALARM ON FOR SAFETY. WILL ENDORSE TO NEXT SHIFT.
--- NOTE | 2020-03-08 07:23 | NUR ---
RN NOTES RECEIVED PT IN BED, ON COMFORT MEASURES ONLY. NOT IN ANY DISTRESS. NO SOB NOTED. NO S/SX OF ANY PAIN OR DISCOMFORT AT THIS TIME. WITH MORPHINE DRIP INFUSING WELL. SAFETY MEASURES IN PLACE, CALL LIGHT WITHIN REACH. BED IN LOWEST POSITION. SR UP X 3 WITH BED ALARM ON FOR SAFETY. WILL CONTINUE TO MONITOR.
[2020-03-08 08:00] VITALS: BP 102/38
[2020-03-08 16:00] VITALS: BP 88/31
[2020-03-08] MEDS: MORPHINE SULFATE PF DRIP 250 MG in IV D5W 240 ML IV PRN (18:25)
--- NOTE | 2020-03-08 18:25 | NUR ---
RN NOTES REPLACE MORPHINE BAG, WASTED 140ML, WITNESS BY LETTY CASTELLANOS. WILL CONTINUE TO MONITOR.
--- NOTE | 2020-03-08 18:45 | NUR ---
RN NOTES PT IN BED, ON COMFORT MEASURES ONLY. NOT IN ANY DISTRESS. NO SOB NOTED. NO S/SX OF ANY PAIN OR DISCOMFORT THROUGHOUT THE SHIFT. WITH MORPHINE DRIP INFUSING WELL. SAFETY MEASURES IN PLACE, CALL LIGHT WITHIN REACH. BED IN LOWEST POSITION. SR UP X 3 WITH BED ALARM ON FOR SAFETY. WILL ENDORSE TO TEACHER ADULT EDUCATION NURSE FOR [place].
--- NOTE | 2020-03-08 19:30 | NUR ---
MS RN OPENING NOTE RECEIVED PATIENT IN BED. PATIENT IS NONVERBAL. ON OXYGEN 4L/MIN VIA NASAL CANNULA. RESPIRATIONS ARE EVEN AND UNLABORED. NO S/S SOB NOTED. NO S/S PAIN AT THIS TIME. IN NO APPARENT DISTRESS. IV ACCESS IN REEMA MIDLINE RUNNING MORPHINE @10MG/HR. BED IS LOW AND LOCKED, HOB ELEVATED IN SEMI FOWLERS, SIDE RIALS UP X2, EXTREMITIES OFFLOADED. CALL LIGHT WITHIN REACH. WILL CONTINUE TO MONITOR.
[2020-03-08 20:00] VITALS: BP 81/32
--- NOTE | 2020-03-09 05:58 | NUR ---
MS RN NOTE INCREASE MORPHINE DRIP TO 12MG/HR. WILL CONTINUE TO MONITOR.
--- NOTE | 2020-03-09 06:17 | NUR ---
MS RN CLOSING NOTE PATIENT IN BED. PATIENT IS NONVERBAL. ON OXYGEN 4L/MIN VIA NASAL CANNULA. RESPIRATIONS ARE EVEN AND UNLABORED. NO SOB NOTED. NO S/S PAIN. NO DISTRESS. IV ACCESS MAINTAINED IN REEMA MIDLINE RUNNING MORPHINE @12MG/HR. BED IS LOW AND LOCKED, HOB ELEVATED IN SEMI FOWLERS, SIDE RIALS UP X2, EXTREMITIES OFFLOADED. CALL LIGHT WITHIN REACH. WILL ENDORSE TO NEXT SHIFT
--- NOTE | 2020-03-09 07:18 | NUR ---
RN NOTES RECEIVED PT IN BED, ON COMFORT MEASURES ONLY. NOT IN ANY DISTRESS. NO SOB NOTED. NO S/SX OF ANY PAIN OR DISCOMFORT AT THIS TIME. WITH MORPHINE DRIP INFUSING @12ML/HR. SAFETY MEASURES IN PLACE, CALL LIGHT WITHIN REACH. BED IN LOWEST POSITION. SR UP X 3 WITH BED ALARM ON FOR SAFETY. WILL CONTINUE TO MONITOR.
[2020-03-09 08:00] VITALS: BP 60/35
--- NOTE | 2020-03-09 15:15 | NUR ---
RN NOTES DURING ROUNDS, PATIENT NOTED WITH NO PULSE, NO HEART RATE AND PATIENT IS NOT BREATHING. VERIFIED WITH LETTY MARTINEZ. PRONOUNCE 14:40. FAMILY NOTIFIED, MD NOTIFIED, CHARGE NURSE NOTIFIED, LANDSCAPING SPECIALIST NOTIFIED. CALLED [facility] AND SPOKE TO HUONG, CASE # [id number]. CALLED MORTUARY AND SPOKE TO ERIC, PATIENT WILL BE PICKE UP AROUND 17:00. POST MORTEM DONE.
--- NOTE | 2020-03-09 17:30 | NUR ---
RN NOTES PATIENT WAS TRANSPORTED TO THE [facility] [place], ACCOMPANIED BY SECURITY, NO BELONGINGS. CHARGE NURSE AND CONTACT LENS BLOCKER AND CUTTER AWARE.
== END 2020-03-09 14:40 | disposition expired | DRG 130 ==
LOC: ER 14:11 → TELE1 17:24 → TELE 02-25 14:18 → MED 02-26 13:11 → TELE1 02-28 14:13 → TELE2 02-29 23:52 → TELE1 03-01 00:06 → TELE2 03-01 01:25 → ICU 03-01 20:47 → MED 03-08 00:18
PROVIDERS: ADMIT Internal Medicine; ATTEND Internal Medicine
PROC: 30233N1 Transfusion of Nonautologous Red Blood Cells into Peripheral Vein, Percutaneous Approach (ICD-10-PCS; 2020-02-19)
PROC: 5A1D70Z Performance of Urinary Filtration, Intermittent, Less than 6 Hours Per Day (ICD-10-PCS; principal; 2020-02-25)
PROC: 06HY33Z Insertion of Infusion Device into Lower Vein, Percutaneous Approach (ICD-10-PCS; principal; 2020-02-25)
PROC: 5A1955Z Respiratory Ventilation, Greater than 96 Consecutive Hours (ICD-10-PCS; 2020-03-02)
PROC: 5A2204Z Restoration of Cardiac Rhythm, Single (ICD-10-PCS; 2020-03-02)
PROC: 0BH17EZ Insertion of Endotracheal Airway into Trachea, Via Natural or Artificial Opening (ICD-10-PCS; 2020-03-02)
PROC: 05HY33Z Insertion of Infusion Device into Upper Vein, Percutaneous Approach (ICD-10-PCS; 2020-03-03)
DX: J96.01 Acute respiratory failure with hypoxia (principal); J15.9 Unspecified bacterial pneumonia; G93.41 Metabolic encephalopathy; G93.1 Anoxic brain damage, not elsewhere classified; N17.9 Acute kidney failure, unspecified; I13.2 Hypertensive heart and chronic kidney disease with heart failure and with stage 5 chronic kidney disease, or end stage renal disease; N18.5 Chronic kidney disease, stage 5; G62.9 Polyneuropathy, unspecified; I46.9 Cardiac arrest, cause unspecified; Z51.5 Encounter for palliative care; Z66 Do not resuscitate; J44.0 Chronic obstructive pulmonary disease with (acute) lower respiratory infection; D72.810 Lymphocytopenia; E83.39 Other disorders of phosphorus metabolism; I25.10 Atherosclerotic heart disease of native coronary artery without angina pectoris; K21.9 Gastro-esophageal reflux disease without esophagitis; I50.33 Acute on chronic diastolic (congestive) heart failure; E87.1 Hypo-osmolality and hyponatremia; E78.00 Pure hypercholesterolemia, unspecified; E78.5 Hyperlipidemia, unspecified; K40.90 Unilateral inguinal hernia, without obstruction or gangrene, not specified as recurrent; Z79.82 Long term (current) use of aspirin; Z79.899 Other long term (current) drug therapy; N25.81 Secondary hyperparathyroidism of renal origin; D63.8 Anemia in other chronic diseases classified elsewhere; D50.9 Iron deficiency anemia, unspecified; I67.2 Cerebral atherosclerosis; I70.0 Atherosclerosis of aorta; K57.30 Diverticulosis of large intestine without perforation or abscess without bleeding; K59.00 Constipation, unspecified; M43.16 Spondylolisthesis, lumbar region; Y95 Nosocomial condition; Z79.51 Long term (current) use of inhaled steroids; Z99.2 Dependence on renal dialysis; Z90.710 Acquired absence of both cervix and uterus; M89.8X9 Other specified disorders of bone, unspecified site; N83.291 Other ovarian cyst, right side; D72.829 Elevated white blood cell count, unspecified
CPT/HCPCS: 31720; 36415; 36600; 70450-TC; 71045-TC; 71250-TC; 76770-TC; 76856-TC; 80048-TC; 80053-TC; 80076-TC; 80202-TC; 81000-TC; 82140-TC; 82272-TC; 82550-TC; 82570-TC; 82728-TC; 82803-TC; 82962-TC; 83540-TC; 83605-TC; 83615-TC; 83690-TC; 83735-TC; 83880; 83970; 84100-TC; 84155; 84155-TC; 84165; 84300-TC; 84439-TC; 84443-TC; 84484-TC; 85025-TC; 85378-TC; 85610-TC; 85652-TC; 85730-TC; 86140-TC; 86225; 86235; 86304; 86704; 86706; 86803; 86850-TC; 86921-TC; 87040-TC; 87081-TC; 87086-TC; 87340; 90935-TC; 93307-TC; 94003-TC; 94760-TC; 94799-TC; 95819-TC; A4216; C1750; C1751; G0378; J0171; J0456; J0696; J0885; J1940; J2185; J2270; J2274; J2405; J2916; J3370; J3490; J7030; J7040; J7050; J7060; P9016-BL; P9047; Q9963